=== PATIENT | male | born 1985 | race Caucasian/White ===

== ENCOUNTER 2016-08-14 12:42 | Emergency (ER) | payer BC ==
[2016-08-14 13:02] VITALS: BP 126/70
--- NOTE | 2016-08-14 13:28 | UC ---
UC General HPI - HPI Summary HPI Summary: FEVER, CHILLS X 3 DAYS + HEADACHES , BODY ACHES, CONGESTION , ABDOMINAL PAIN NO N/V/D/C NO URINARY SX. NO COUGH - History of Current Complaint Chief Complaint: UC Stated Complaint: ACHY/STOMACH/FEVER/SORE THROAT Time Seen by Provider: 08/14/16 12:54 Hx Obtained From: Patient Onset/Duration: Gradual Onset, Lasting Days - 3, Still Present Onset Severity: Moderate Current Severity: Moderate Associated Signs & Symptoms: Positive: Abdominal Pain, Diaphoresis, Headache, Weakness. Negative: Agitation, Anticoagulation Therapy, Back Pain, Confusion, Cough, Chest Pain, Decreased Responsiveness, Dizziness, Diarrhea, Dysuria, Decreased Oral Intake, Edema, Fever, Hematemesis, Hemoptysis, Immunocompromised , In-Dwelling Medication Device, Melena, Nausea, Palpitations, Recent Medication Changes, Syncope, SOB, Trauma, Vomiting, Wheezing - Allergy/Home Medications Allergies/Adverse Reactions: Allergies Allergy/AdvReac Type Severity Reaction Status Date / Time Ciprofloxacin Allergy See Comment Verified 08/14/16 12:54 PMH/Surg Hx/FS Hx/Imm Hx Previously Healthy: Yes - Surgical History Surgical History: Yes Surgery Procedure, Year, and Place: L wrist 2002 - Family History Known Family History: Positive: Hypertension - Social History Alcohol Use: None Substance Use Type: None Smoking Status (MU): Former Smoker Type: Cigarettes Length of Time of Smoking/Using Tobacco: On and Off 4 Years Have You Smoked in the Last Year: Yes When Did the Patient Quit Smoking/Using Tobacco: 2012 - Immunization History Most Recent Influenza Vaccination: Current for Review of Systems Constitutional: Fever, Chills, Fatigue Skin: Negative Eyes: Negative ENT: Sore Throat, Nasal Discharge Respiratory: Negative Cardiovascular: Negative Gastrointestinal: Abdominal Pain Genitourinary: Negative Motor: Negative Neurovascular: Negative All Other Systems Reviewed And Are Negative: Yes Physical Exam Triage Information Reviewed: Yes Appearance: Well-Appearing, No Pain Distress, Obese Vital Signs: Initial Vital Signs Temp 98.1 F 08/14/16 12:54 Pulse 74 08/14/16 12:54 Resp 18 08/14/16 12:54 BP 126/70 08/14/16 12:54 Pulse Ox 97 08/14/16 12:54 Vital Signs Reviewed: Yes Eyes: Positive: Conjunctiva Clear ENT: Positive: Normal ENT inspection, Hearing grossly normal, Pharynx normal Neck exam: Normal Neck: Positive: Supple, Nontender, No Lymphadenopathy Respiratory: Positive: Chest non-tender, Lungs clear, Normal breath sounds, No respiratory distress Cardiovascular: Positive: RRR, No Murmur, Pulses Normal, Brisk Capillary Refill Abdominal Exam: Normal Abdomen Description: Positive: Nontender, Soft. Negative: CVA Tenderness (R), CVA Tenderness (L), Distended, Guarding Bowel Sounds: Positive: Present Musculoskeletal: Positive: Strength Intact, ROM Intact, No Edema Neurological: Positive: Alert Skin Exam: Normal Course/Dx - Differential Dx - Multi-Symptom Provider Diagnoses: VIRAL ILLNESS Discharge - Discharge Plan Condition: Stable Disposition: HOME Patient Education Materials: Viral Syndrome (ED) Forms: *Work Release Referrals: Dionisio Knight MD [Primary Care Provider] - If Needed
== END 2016-08-14 13:35 | disposition home or self-care (01) ==
LOC: UCCORT 12:42
DX: B34.9 Viral infection, unspecified (principal); E66.9 Obesity, unspecified; Z87.891 Personal history of nicotine dependence; Z88.1 Allergy status to other antibiotic agents
CPT/HCPCS: 99211; G0463

== ENCOUNTER 2017-06-21 11:04 | Emergency (ER) | payer BC ==
[2017-06-21 11:22] VITALS: BP 117/70
--- NOTE | 2017-06-21 12:55 | UC ---
Respiratory Complaint HPI - HPI Summary HPI Summary: 32 yo male with a one week hx of cough/wheeze/fever/chills/headache/mild myalgias no sob out of his combivent - History of Current Complaint Chief Complaint: UCGeneralIllness Stated Complaint: COUGH Time Seen by Provider: 06/21/17 12:47 Hx Obtained From: Patient Onset/Duration: Sudden Onset, Lasting Days Timing: Constant Severity Initially: Mild Severity Currently: Moderate Pain Intensity: 3 Pain Scale Used: 0-10 Numeric Character: Cough: Productive Aggravating Factors: Exertion, Deep Breaths Alleviating Factors: Nothing Associated Signs And Symptoms: Positive: Fever - oleg, Wheezing, Nasal Congestion , Hoarseness, Sinus Discomfort - Allergies/Home Medications Allergies/Adverse Reactions: Allergies Allergy/AdvReac Type Severity Reaction Status Date / Time Ciprofloxacin Allergy See Comment Verified 06/21/17 11:21 PMH/Surg Hx/FS Hx/Imm Hx Previously Healthy: Yes Respiratory History: Bronchitis, Pneumonia - Surgical History Surgical History: Yes Surgery Procedure, Year, and Place: 2002 - Family History Known Family History: Positive: Hypertension - Social History Alcohol Use: None Substance Use Type: None Smoking Status (MU): Former Smoker Type: Cigarettes Length of Time of Smoking/Using Tobacco: On and Off 4 Years Have You Smoked in the Last Year: Yes When Did the Patient Quit Smoking/Using Tobacco: 2012 - Immunization History Most Recent Influenza Vaccination: Current for Review of Systems Constitutional: Fever - oleg, Fatigue Skin: Negative Eyes: Negative ENT: Sore Throat, Nasal Discharge, Sinus Congestion Respiratory: Cough, Other - wheezing Cardiovascular: Negative Gastrointestinal: Negative Genitourinary: Negative Motor: Negative Neurovascular: Negative Musculoskeletal: Negative Neurological: Negative Psychological: Negative Is Patient Immunocompromised?: No All Other Systems Reviewed And Are Negative: Yes Physical Exam Triage Information Reviewed: Yes Appearance: Well-Appearing, No Pain Distress, Well-Nourished Vital Signs: Initial Vital Signs Temp 98.1 F 06/21/17 11:18 Pulse 76 06/21/17 11:18 Resp 16 06/21/17 11:18 BP 117/70 06/21/17 11:18 Pulse Ox 95 06/21/17 11:18 Vital Signs Reviewed: Yes Eyes: Positive: Conjunctiva Clear ENT: Positive: Hearing grossly normal, Nasal congestion, Nasal drainage, TMs normal, Muffled voice, Uvula midline. Negative: Tonsillar swelling, Tonsillar exudate, Trismus, Dental tenderness Neck: Positive: Supple, Nontender, No Lymphadenopathy Respiratory: Positive: Lungs clear, Normal breath sounds, No respiratory distress, No accessory muscle use, Wheezing - with forced expiration Cardiovascular: Positive: RRR Musculoskeletal: Positive: ROM Intact, No Edema Neurological: Positive: Alert Psychological Exam: Normal Skin Exam: Normal UC Diagnostic Evaluation - Laboratory O2 Sat by Pulse Oximetry: 95 - low normal/not hypoxic Respiratory Course/Dx - Differential Dx/Diagnosis Provider Diagnoses: acute bronchitis with bronchopasm Discharge - Discharge Plan Condition: Stable Disposition: HOME Prescriptions: Albuterol HFA INHALER* [Ventolin HFA Inhaler*] 2 puff INH QID #1 mdi Amoxicillin PO (*) [Amoxicillin 875 MG (*)] 875 mg PO BID #20 tab Prednisone [Deltasone] 40 mg PO DAILY #10 tab Patient Education Materials: Acute Bronchitis (ED) Referrals: Doris Nieves MD [Primary Care Provider] - 4 Days (if not better)
== END 2017-06-21 13:03 | disposition home or self-care (01) ==
LOC: UCCORT 11:04
DX: J20.9 Acute bronchitis, unspecified (principal); Z88.1 Allergy status to other antibiotic agents; Z87.891 Personal history of nicotine dependence
CPT/HCPCS: 99212; G0463

== ENCOUNTER 2018-03-16 23:29 | Emergency (ER) | payer BC ==
--- OUTSIDE RECORDS SUMMARY | 2018-03-16 23:42 | XMS REPORT ---
:1985 External Reference #:[id number] Author Organization [facility] Address [address], [address] [place] [address] Phone [phone] Care Team Providers Name Role Phone Dionisio Knight MD Care Team Information Stove Polisher Unavailable Doris Nieves MD Primary Care Physician Unavailable Payers Type Date Identification Numbers Payment Provider Subscriber Commercial Policy Number: [id number] [facility] Maurilio Palmer PayID: [id number] [address] [place] [address] Problems Date Description Provider Status Onset: 03/04/2018 Epigastric pain Lonnie Williamson MD Active Family History Date Family Member(s) Problem(s) Comments General Non Contributory Father Alcoholism Onset: (age 64 Years) Father CHF Father CAD Grandfather due to Congestive Heart () Failure Social History Type Date Description Comments Marital Status Lives With Home Environment Lives With Diet Patient follows no dietary restrictions 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 ADL's/IADL's Independent with all ADL's Cigarette Use Former Cigarette Smoker Social smoker 5 cigs a day for 6 years ETOH Use Denies alcohol use Smoking Patient is a former smoker Recreational Drug Use Denies Drug Use Daily Caffeine Consumes on average 1 cup of regular coffee per day Allergies, Adverse Reactions, Alerts Date Description Reaction Status Severity Comments 01/27/2013 Ciprofloxacin intolerance, body flush & hot active 01/11/2013 NKDA inactive Medications Medication Date Status Form Strength Qnty SIG Indications Ordering Provider Marilynn 03/04/ Active Tablets 5mg 90tabs 1 tab by Devin Williamson, MD twice a day Pantoprazole 03/04/ Active Tablets DR 40mg 90tabs 1 by Peg Williamson 2018 mouth MD Lonnie every day Amiodarone HCL / Active Tablets 200mg 1 by Unknown 0000 mouth every day Dicyclomine HCL / Active Capsules 10mg 1 cap by Unknown 0000 mouth four times a day as needed No Active Unknown Medications 2017 - 2017 Lactaid Ultra 11/27/ Hx Tablets 9000Unit 90tabs 1 tab R10.9 Teri, 2017 with MD Lonnie every meal Preparation H 09/04/ Hx Cream 1% 26gm 1tube K64.9 Teri Hydrocortisone 2016 apply MD Lonnie small amount to rectum bid Bentyl 09/04/ Hx Capsules 10mg 120cap 1 cap by R10.9 Teri, 2017 s mouth MD Lonnie four times a day s needed Dicyclomine HCL / Hx Tablets 20mg 120tab 1 po qid Unknown 0000 s prn Bupropion HCL ER / Hx Tablets ER 150mg Unknown 0000 12HR Lialda / Hx Tablets DR 1.2gm Unknown 0000 Ibuprofen / Hx Capsules 200mg as Unknown 0000 needed Eliquis / Hx Tablets 5mg 1 tab by Unknown 0000 mouth twice a day Pantoprazole / Hx Tablets DR 40mg 1 by Unknown Sodium 0000 mouth every day Flecainide / Hx Tablets 100mg 60tabs 1 by Ankita Fernandez 0000 - mouth Dominick Fish, 03/04/ twice a MMary, [facility] 2017 Vital Signs Date Vital Result Comment 03/10/2018 BP Systolic Sitting Left Arm 118 mmHg BP Diastolic Sitting Left Arm 78 mmHg Heart Rate 71 /min Respiratory Rate 16 /min Height 69 inches 5'9" Weight 299.00 lb BMI (Body Mass Index) 44.1 kg/m2 BSA (Body Surface Area) 2.45 m2 [place] body weight in kilograms 73 O2 % BldC Oximetry 95 % 03/04/2018 BP Systolic Sitting Left Arm 126 mmHg BP Diastolic Sitting Left Arm 81 mmHg Heart Rate 60 /min Respiratory Rate 16 /min Height 69 inches 5'9" Weight 298.00 lb BMI (Body Mass Index) 44.0 kg/m2 BSA (Body Surface Area) 2.45 m2 [place] body weight in kilograms 73 O2 % BldC Oximetry 96 % 01/13/2018 BP Systolic Sitting Left Arm 122 mmHg BP Diastolic Sitting Left Arm 88 mmHg Heart Rate 73 /min Respiratory Rate 18 /min Height 69 inches 5'9" Weight 302.00 lb BMI (Body Mass Index) 44.6 kg/m2 BSA (Body Surface Area) 2.46 m2 [place] body weight in kilograms 73 O2 % BldC Oximetry 94 % Ora 12/01/2017 Heart Rate 69 /min Respiratory Rate 18 /min Height 69 inches 5'9" Weight 305.00 lb BMI (Body Mass Index) 45.0 kg/m2 BSA (Body Surface Area) 2.47 m2 [place] body weight in kilograms 73 O2 % BldC Oximetry 97 % 11/27/2016 BP Systolic Sitting Left Arm 100 mmHg BP Diastolic Sitting Left Arm 76 mmHg Heart Rate 78 /min Respiratory Rate 18 /min Height 69 inches 5'9" Weight 287.00 lb BMI (Body Mass Index) 42.4 kg/m2 BSA (Body Surface Area) 2.41 m2 [place] body weight in kilograms 73 09/04/2016 BP Systolic Sitting Left Arm 102 mmHg BP Diastolic Sitting Left Arm 68 mmHg Heart Rate 76 /min Respiratory Rate 16 /min Height 69 inches 5'9" Weight 285.00 lb BMI (Body Mass Index) 42.1 kg/m2 BSA (Body Surface Area) 2.40 m2 01/27/2013 BP Systolic Sitting Right Arm 112 mmHg BP Diastolic Sitting Right Arm 67 mmHg Heart Rate 59 /min Respiratory Rate 20 /min Height 69 inches 5'9" Weight 239.00 lb BMI (Body Mass Index) 35.3 kg/m2 BSA (Body Surface Area) 2.23 m2 Results Test Date Test Result H/L Range Note CBC W/Automated Diff 03/10/2018 White Blood Count 5.0 K/uL 3.4-10.5 1 Red Blood Count 5.51 M/uL 4.20-5.80 1 Hemoglobin 15.9 gm/dL 12.8-17.0 1 Hematocrit 46.1 % 38.0-48.0 1 Mean Cell Volume 83.7 fl 80.0-96.0 1 Mean Corpuscular HGB 28.9 pg 27.0-33.0 1 Mean Corpuscular HGB Conc 34.5 g/dL 31.7-36.0 1 Platelet Count 277 K/uL 155-360 1 Red Cell Distri Width SD 40.8 fl 36-51 1 Red Cell Distri Width %CV 13.5 % 11.6-15.8 1 Mean Platelet Volume 9.8 fL 6.6-10.6 1 Neut% 53.8 % 33.0-73.0 1 Lymph % 34.4 % 20.0-42.0 1 Bureau % 7.4 % 0.0-10.0 1 Eo% 3.8 % 0.0-6.6 1 Bas% 0.6 % 0.0-1.1 1 Neut# 2.67 K/uL 1.8-7.0 1 Lymph # 1.71 K/uL 1.0-4.0 1 Bureau # 0.37 K/uL 0.0-0.8 1 Eos # 0.19 K/uL 0.0-0.5 1 Baso # 0.03 K/uL 0.0-0.1 1 Laboratory test finding 03/10/2018 Magnesium <pending> 1 TSH Reflex FT4 And/Or FT3 <pending> 1 Eosinophil/leuk NFr 02/16/2018 Eosinophil/leuk NFr 4.6 0.0-6.6 Bld Auto Bld Auto Lymphocytes/leuk NFr 02/16/2018 Lymphocytes/leuk NFr 37.6 20.0-42.0 Bld Auto Bld Auto Monocytes/leuk NFr Bld 02/16/2018 Monocytes/leuk NFr 9.0 0.0-10.0 Auto Bld Auto Neutrophils # Bld Auto 02/16/2018 Neutrophils # Bld 3.37 1.8-7.0 Auto Neutrophils/leuk NFr 02/16/2018 Neutrophils/leuk NFr 48.2 33.0-73.0 Bld Auto Bld Auto Potassium SerPl-sCnc 02/16/2018 Potassium SerPl-sCnc 3.6 3.5-5.1 RDW RBC Auto 02/16/2018 RDW RBC Auto 40.5 36-51 RDW RBC Auto-Rto 02/16/2018 RDW RBC Auto-Rto 13.3 11.6-15.8 Serum carbon dioxide 02/16/2018 Serum carbon dioxide 27 21-32 measurement measurement Serum or plasma 02/16/2018 Serum or plasma 8.6 8.5-10.1 calcium measurement calcium measurement (mass/volume) (mass/volume) Serum or plasma 02/16/2018 Serum or plasma 1.1 0.6-1.3 creatinine measurement creatinine (mass/volum measurement (mass/volume) Serum or plasma direct 02/16/2018 Serum or plasma 0.2 0.0-0.2 bilirubin measurement direct bilirubin (mass measurement (mass/volume) Serum or plasma 02/16/2018 Serum or plasma 100 74-106 glucose measurement glucose measurement (mass/volume) (mass/volume) Serum or plasma 02/16/2018 Serum or plasma 1.9 High 0.0-0.9 indirect bilirubin indirect bilirubin measurement (ma measurement (mass/volume) Serum or plasma total 02/16/2018 Serum or plasma total 2.1 High 0.2-1.0 bilirubin measurement bilirubin measurement (mass/ (mass/volume) Serum or plasma urea 02/16/2018 Serum or plasma urea 6 Low 7-18 nitrogen measurement nitrogen measurement (mass/vo (mass/volume) Serum or plasma urea 02/16/2018 Serum or plasma urea 5.4 nitrogen/creatinine nitrogen/creatinine mass rati mass ratio Serum sodium 02/16/2018 Serum sodium 142 136-145 measurement measurement Aot Request 02/16/2018 Aot Request Test(s) 2, 3 added Tests to be added: Bilirubin, direc <SEE NOTE> 2, 4 * Miscellaneous 02/16/2018 * Miscellaneous Test(s) added studies (set) studies (set) Anion Gap SerPl-sCnc 02/16/2018 Anion Gap SerPl-sCnc 9 8-16 Automated blood 02/16/2018 Automated blood 0.04 0.0-0.1 basophil count basophil count (count/volume) (count/volume) Automated blood 02/16/2018 Automated blood 0.32 0.0-0.5 eosinophil count eosinophil count Automated blood 02/16/2018 Automated blood 49.3 38.0-48.0 hematocrit (volume hematocrit (volume fraction) fraction) Automated blood 02/16/2018 Automated blood 2.63 1.0-4.0 lymphocyte count lymphocyte count (number/volume) (number/volume) Automated blood 02/16/2018 Automated blood 271 155-360 platelet count platelet count Automated blood 02/16/2018 Automated blood 9.8 6.6-10.6 platelet mean volume platelet mean volume measurement measurement Automated erythrocyte 02/16/2018 Automated erythrocyte 28.9 27.0-33.0 mean corpuscular mean corpuscular hemoglobin hemoglobin (mass per erythrocyte) Automated erythrocyte 02/16/2018 Automated erythrocyte 34.5 31.7-36.0 mean corpuscular mean corpuscular hemoglobin hemoglobin concentration measurement (mass/volume) Automated erythrocyte 02/16/2018 Automated erythrocyte 83.8 80.0-96.0 mean corpuscular mean corpuscular volume volume Basophils/leuk NFr 02/16/2018 Basophils/leuk NFr 0.6 0.0-1.1 Bld Auto Bld Auto Blood erythrocytes 02/16/2018 Blood erythrocytes 5.88 High 4.20-5.80 automated count automated count (number/volume) (number/volume) Blood hemoglobin 02/16/2018 Blood hemoglobin 17.0 12.8-17.0 measurement measurement (mass/volume) (mass/volume) Blood leukocytes 02/16/2018 Blood leukocytes 7.0 3.4-10.5 automated count automated count (number/volume) (number/volume) Blood monocytes 02/16/2018 Blood monocytes 0.63 0.0-0.8 automated count automated count (number/volume) (number/volume) Chloride SerPl-sCnc 02/16/2018 Chloride SerPl-[facility] 106 98-107 Serum or plasma 02/15/2018 Serum or plasma 1.4 0.4-1.9 lactate measurement lactate measurement (moles/volume) (moles/volume) pH Ur Strip.auto 02/13/2018 pH Ur Strip.auto 6.0 Low 6.5-7.5 Urobilinogen Ur 02/13/2018 Urobilinogen Ur 0.2 0.2-1.0 Strip-aCnc Strip-aCnc Urine total bilirubin 02/13/2018 Urine total bilirubin Negative Negative detection by detection by automated test automated test strip Urine hemoglobin 02/13/2018 Urine hemoglobin Negative Negative detection by detection by automated test strip automated test strip Urine glucose 02/13/2018 Urine glucose Negative Negative measurement by measurement by automated test strip automated test strip (mass/volume) Urine appearance 02/13/2018 Urine appearance Clear Clear determination determination Specific gravity of 02/13/2018 Specific gravity of 1.025 1.010-1.030 Urine by Automated Urine by Automated test strip test strip Serum or plasma 02/13/2018 Serum or plasma 7.3 6.4-8.2 protein measurement protein measurement (mass/volume) (mass/volume) Serum or plasma 02/13/2018 Serum or plasma 56 56-289 lipase measurement lipase measurement (enzymatic acti (enzymatic activity/volume) Serum or plasma 02/13/2018 Serum or plasma 23 15-37 aspartate aspartate aminotransferase aminotransferase measure measurement (enzymatic activity/volume) Serum or plasma 02/13/2018 Serum or plasma 74 45-117 alkaline phosphatase alkaline phosphatase measurement ( measurement (enzymatic activity/volume) Serum or plasma 02/13/2018 Serum or plasma 3.7 3.4-5.0 albumin measurement albumin measurement (mass/volume) (mass/volume) Serum or plasma C 02/13/2018 Serum or plasma C 8.0 High <3.0 reactive protein reactive protein measurement (ma measurement (mass/volume) Prot Ur 02/13/2018 Prot Ur Negative Negative Strip.auto-mCnc Strip.auto-mCnc Nitrite Ur Ql 02/13/2018 Nitrite Ur Ql Negative Negative Strip.auto Strip.auto Leukocyte esterase Ur 02/13/2018 Leukocyte esterase Ur Negative Negative Ql Strip.auto Ql Strip.auto Ketones Ur 02/13/2018 Ketones Ur Trace High Negative Strip.auto-mCnc Strip.auto-mCnc Globulin Ser 02/13/2018 Globulin Ser 3.6 1.9-4.3 Calc-mCnc Calc-mCnc Alt SerPl-cCnc 02/13/2018 Alt SerPl-cCnc 41 12-78 Albumin/Glob SerPl 02/13/2018 Albumin/Glob SerPl 1.0 Color Ur 02/13/2018 Color Ur Yellow Yellow Globulin Ser 11/10/2017 Globulin Ser 3.1 1.9-4.3 Calc-mCnc Calc-mCnc Chloride SerPl-sCnc 11/10/2017 Chloride SerPl-sCnc 106 98-107 Potassium SerPl-sCnc 11/10/2017 Potassium SerPl-sCnc 4.1 3.5-5.1 RDW RBC Auto-Rto 11/10/2017 RDW RBC Auto-Rto 13.7 11.6-15.8 Serum carbon dioxide 11/10/2017 Serum carbon dioxide 30 21-32 measurement measurement Serum or plasma 11/10/2017 Serum or plasma 3.3 Low 3.4-5.0 albumin measurement albumin measurement (mass/volume) (mass/volume) Serum or plasma 11/10/2017 Serum or plasma 67 45-117 alkaline phosphatase alkaline phosphatase measurement ( measurement (enzymatic activity/volume) Serum or plasma 11/10/2017 Serum or plasma 20 15-37 aspartate aspartate aminotransferase aminotransferase measure measurement (enzymatic activity/volume) Serum or plasma 11/10/2017 Serum or plasma 8.4 Low 8.5-10.1 calcium measurement calcium measurement (mass/volume) (mass/volume) Serum or plasma 11/10/2017 Serum or plasma 1.1 0.6-1.3 creatinine creatinine measurement measurement (mass/volum (mass/volume) Serum or plasma 11/10/2017 Serum or plasma 106 74-106 glucose measurement glucose measurement (mass/volume) (mass/volume) Serum or plasma 11/10/2017 Serum or plasma 6.4 6.4-8.2 protein measurement protein measurement (mass/volume) (mass/volume) Serum or plasma total 11/10/2017 Serum or plasma total 0.9 0.2-1.0 bilirubin measurement bilirubin measurement (mass/ (mass/volume) Serum or plasma urea 11/10/2017 Serum or plasma urea 16 7-18 nitrogen measurement nitrogen measurement (mass/vo (mass/volume) Serum sodium 11/10/2017 Serum sodium 140 136-145 measurement measurement Unloinc 11/10/2017 Unloinc Sitting Up In Bed Continuous Oximetry 11/10/2017 Oximetry 98 % 93-98 5 Fio2 21 21-100 5 Heart Rate 85 BPM 5 Patient Status RESTING 5 Patient Position SITTING UP IN BE <SEE NOTE> 5, 6 Unloinc 11/10/2017 Unloinc Ambulating Heart rate by oximetry 11/10/2017 Heart rate by oximetry 102 Determination of inhaled 11/10/2017 Determination of inhaled 21 21-100 oxygen concentration (vol oxygen concentration (volume fraction) Arterial blood oxygen 11/10/2017 Arterial blood oxygen 93 93-98 saturation measurement by saturation measurement by pu pulse oximetry Continuous Oximetry 11/10/2017 Oximetry 93 % 93-98 5 Fio2 21 21-100 5 Heart Rate 102 BPM 5 Patient Status AMBULATING 5 CBC 11/10/2017 White Blood Count 6.4 K/uL 3.4-10.5 5 Red Blood Count 5.59 M/uL 4.20-5.80 5 Hemoglobin 16.5 gm/dL 12.8-17.0 5 Hematocrit 47.5 % 38.0-48.0 5 Mean Cell Volume 85.0 fl 80.0-96.0 5 Mean Corpuscular HGB 29.5 pg 27.0-33.0 5 Mean Corpuscular HGB Conc 34.7 g/dL 31.7-36.0 5 Platelet Count 261 K/uL 155-360 5 Red Cell Distri Width %CV 13.7 % 11.6-15.8 5 Mean Platelet Volume 9.9 fL 6.6-10.6 5 Comprehensive Metabolic Panel 11/10/2017 Glucose 106 mg/dL 74-106 5 BUN 16 mg/dL 7-18 5 Creatinine 1.1 mg/dL 0.6-1.3 5 Glom Filtration Rate, Estimate >60 mL/min >60 5 If >60 mL/min >60 5, 7 BUN/Creat 14.5 ratio 5 Sodium 140 mmol/L 136-145 5 Potassium 4.1 mmol/L 3.5-5.1 5 Chloride 106 mmol/L 98-107 5 Carbon Dioxide 30 mmol/L 21-32 5 Anion Gap 4 mEq/L Low 8-16 5 Calcium 8.4 mg/dL Low 8.5-10.1 5 Total Protein 6.4 g/dL 6.4-8.2 5 Albumin 3.3 g/dL Low 3.4-5.0 5 Globulin 3.1 g/dL 1.9-4.3 5 Alb/Glob 1.1 ratio 5 Bilirubin,Total 0.9 mg/dL 0.2-1.0 5 Sgot/Ast 20 U/L 15-37 5 SGPT/Alt 39 U/L 12-78 5 Alkaline Phosphatase 67 U/L 45-117 5 Laboratory test 11/10/2017 Magnesium 2.1 mg/dL 1.8-2.4 5 finding Alt SerPl-cCnc 11/10/2017 Alt SerPl-cCnc 39 12-78 Blood leukocytes 11/10/2017 Blood leukocytes 6.4 3.4-10.5 automated count automated count (number/volume) (number/volume) Blood hemoglobin 11/10/2017 Blood hemoglobin 16.5 12.8-17.0 measurement measurement (mass/volume) (mass/volume) Blood erythrocytes 11/10/2017 Blood erythrocytes 5.59 4.20-5.80 automated count automated count (number/volume) (number/volume) BUN/Creat SerPl 11/10/2017 BUN/Creat SerPl 14.5 Automated 11/10/2017 Automated 85.0 80.0-96.0 erythrocyte mean erythrocyte mean corpuscular volume corpuscular volume Automated 11/10/2017 Automated 34.7 31.7-36.0 erythrocyte mean erythrocyte mean corpuscular corpuscular hemoglobin hemoglobin concentration measurement (mass/volume) Automated 11/10/2017 Automated 29.5 27.0-33.0 erythrocyte mean erythrocyte mean corpuscular corpuscular hemoglobin hemoglobin (mass per erythrocyte) Automated blood 11/10/2017 Automated blood 9.9 6.6-10.6 platelet mean volume platelet mean volume measurement measurement Automated blood 11/10/2017 Automated blood 261 155-360 platelet count platelet count Automated blood 11/10/2017 Automated blood 47.5 38.0-48.0 hematocrit (volume hematocrit (volume fraction) fraction) Anion Gap SerPl-sCnc 11/10/2017 Anion Gap SerPl-sCnc 4 Low 8-16 Albumin/Glob SerPl 11/10/2017 Albumin/Glob SerPl 1.1 Automated blood 11/09/2017 Automated blood 2.32 1.0-4.0 lymphocyte count lymphocyte count (number/volume) (number/volume) Automated blood 11/09/2017 Automated blood 0.24 0.0-0.5 eosinophil count eosinophil count Basophils/leuk NFr 11/09/2017 Basophils/leuk NFr 0.6 0.0-1.1 Bld Auto Bld Auto Blood monocytes 11/09/2017 Blood monocytes 0.43 0.0-0.8 automated count automated count (number/volume) (number/volume) Eosinophil/leuk NFr 11/09/2017 Eosinophil/leuk NFr 3.7 0.0-6.6 Bld Auto Bld Auto Lymphocytes/leuk NFr 11/09/2017 Lymphocytes/leuk NFr 35.7 20.0-42.0 Bld Auto Bld Auto Monocytes/leuk NFr 11/09/2017 Monocytes/leuk NFr 6.6 0.0-10.0 Bld Auto Bld Auto Neutrophils # Bld 11/09/2017 Neutrophils # Bld 3.47 1.8-7.0 Auto Auto Neutrophils/leuk NFr 11/09/2017 Neutrophils/leuk NFr 53.4 33.0-73.0 Bld Auto Bld Auto Platelet poor plasma 11/09/2017 Platelet poor plasma 1.1 0.9-1.1 international international normalized rati normalized ratio (Inr) by coagulation assay (relative time) Prothrombin time 11/09/2017 Prothrombin time 14.0 12.0-14.4 (PT) in platelet (PT) in platelet poor plasma poor plasma RDW RBC Auto 11/09/2017 RDW RBC Auto 40.7 36-51 Serum or plasma 11/09/2017 Serum or plasma 192 39-308 creatine kinase creatine kinase measurement (enzym measurement (enzymatic activity/volume) Serum or plasma free 11/09/2017 Serum or plasma free 1.24 0.76-1.46 thyroxine (FT4) thyroxine (FT4) measurement ( measurement (mass/volume) TSH SerPl-aCnc 11/09/2017 TSH SerPl-aCnc 0.92 0.30-4.20 Color Ur 11/09/2017 Color Ur Yellow Yellow Ketones Ur 11/09/2017 Ketones Ur Negative Negative Strip.auto-mCnc Strip.auto-mCnc Leukocyte esterase 11/09/2017 Leukocyte esterase Negative Negative Ur Ql Strip.auto Ur Ql Strip.auto Nitrite Ur Ql 11/09/2017 Nitrite Ur Ql Negative Negative Strip.auto Strip.auto Prot Ur 11/09/2017 Prot Ur Negative Negative Strip.auto-mCnc Strip.auto-mCnc Screening urine 11/09/2017 Screening urine Negative barbiturate barbiturate detection detection Specific gravity of 11/09/2017 Specific gravity of 1.020 1.010-1.030 Urine by Automated Urine by Automated test strip test strip Urine amphetamines 11/09/2017 Urine amphetamines Negative detection by detection by screening method screening method Urine appearance 11/09/2017 Urine appearance Clear Clear determination determination Urine 11/09/2017 Urine Negative benzodiazepines benzodiazepines measurement by measurement by screening met screening method (mass/volume) Urine 11/09/2017 Urine Negative benzoylecgonine benzoylecgonine detection by detection by screening metho screening method Urine cannabinoids 11/09/2017 Urine cannabinoids Negative detection by detection by screening method screening method Automated blood 11/09/2017 Automated blood 0.04 0.0-0.1 basophil count basophil count (count/volume) (count/volume) Activated partial 11/09/2017 Activated partial 27.7 23.4-35.0 thromboplastin time thromboplastin time (aPTT) in pl (aPTT) in platelet poor plasma by coagulation assay * Miscellaneous 11/09/2017 * Miscellaneous Already done studies (set) studies (set) Aot Request 11/09/2017 Aot Request Already done 8, 9 Tests to be added: TSH WITH REFELX <SEE NOTE> 8, 10 pH Ur Strip.auto 11/09/2017 pH Ur Strip.auto 7.0 6.5-7.5 Urobilinogen Ur 11/09/2017 Urobilinogen Ur 1.0 0.2-1.0 Strip-aCnc Strip-aCnc Urine total bilirubin 11/09/2017 Urine total bilirubin Negative Negative detection by detection by automated test automated test strip Urine opiates 11/09/2017 Urine opiates Negative detection by detection by screening method screening method Urine methadone 11/09/2017 Urine methadone Negative screen screen Urine drug screen 11/09/2017 Urine drug screen * comment comment interpretation interpretation Urine glucose 11/09/2017 Urine glucose Negative Negative measurement by measurement by automated test strip automated test strip (mass/volume) Urine hemoglobin 11/09/2017 Urine hemoglobin Negative Negative detection by detection by automated test strip automated test strip Ova & Parasite 09/10/2016 Cryptosporidium NEGATIVE FOR 11, 12 Antigen Screen Specific Ag CRY <SEE NOTE> Giardia Specific Antigen NEGATIVE FOR SAUNDRA <SEE NOTE> 11, 13 Stool Culture 09/10/2016 Stool Culture NO ENTERIC PATHO <SEE NOTE> , 14 . ................ <SEE NOTE> 11, 15 Note: INCLUDES TESTING <SEE NOTE> 11, 16 . PLESIOMONAS, CAM <SEE NOTE> 11, 17 . ................ <SEE NOTE> 11, 18 . YERSINIA AND VIB <SEE NOTE> 11, 19 . SHOULD BE REQUES <SEE NOTE> 11, 20 Shiga Toxin 1 Antigen SHIGA TOXIN 1 NO <SEE NOTE> 11, 21 Shiga Toxin 2 Antigen SHIGA TOXIN 2 NO <SEE NOTE> 11, 22 Laboratory test 09/10/2016 C. Difficile Toxin NEGATIVE FOR C. 11, 23 finding A/B <SEE NOTE> Laboratory test 09/04/2016 C-Reactive 1.82 mg/L <3.0 24 finding Protein,Cardiac Sedimentation Rate 1 mm/hr 0-15 24, 25 Celiac Disease Comp AB Profile 09/04/2016 Immunoglobulin A 222 mg/dL 90- 386 24 Antigliadin Abs, IgG 3 units 0-19 24, 26 Antigliadin Abs, IgA 3 units 0-19 24, 27 Endomysial IgA Antibody Negative Negative 24 t-Transglutaminase IgA <2 U/mL 0-3 24, 28 t-Transglutaminase IgG <2 U/mL 0-5 24, 29 Inflammatory Bowel Disease 09/04/2016 Atypical pANCA <1:20 titer Neg:<1: 20 24, 30 Saccharomyces cerevisiae, IgG < 20.0 units 0.0-24.9 24, 31 Saccharomyces cerevisiae, IgA < 20.0 units 0.0-24.9 24, 32 1 I48.O 2 CHOLECYSTITIS, AFIB 3 Tests: Bilirubin, direct and indirest Instructions: 4 Bilirubin, direct and indirest 5 ATRIAL FIB WITH RVR 6 SITTING UP IN BED 7 Note: Persistent reduction for 3 months or more in an eGFR <60 mL/min/1.73 m2 defines CKD. Patients with eGFR values >/=60 mL/min/1.73 m2 may also have CKD if evidence of persistent proteinuria is present. The original MDRD equation for estimated GFR is not valid for patients less than 18 years of age. Additional information may be found at www.kdoqi.org. 8 ATRIAL FLUTTER 9 Tests: TSH WITH REFELX FT3/4 Instructions: 10 TSH WITH REFELX FT3/4 11 UNSPEC ABD PAIN r19.7 12 NEGATIVE FOR CRYPTOSPORIDIUM SPECIFIC ANTIGEN 13 NEGATIVE FOR GIARDIA SPECIFIC ANTIGEN. The specimen will be held for 5 days. Additional testing may be performed upon request if the antigen tests are negative, and the patient is still symptomatic or has traveled to an endemic region. Method: Alere Quik Chek Rapid Membrane Enzyme Immunoassay 14 NO ENTERIC PATHOGENS ISOLATED 15 ................................................... 16 INCLUDES TESTING FOR SALMONELLA, SHIGELLA, AEROMONAS, 17 PLESIOMONAS, CAMPYLOBACTER, AND E. COLI [id number]:[id number] 18 ................................................... 19 YERSINIA AND VIBRIO ARE NOT ROUTINELY SCREENED FOR AND 20 SHOULD BE REQUESTED SEPARATELY 21 SHIGA TOXIN 1 NOT DETECTED 22 SHIGA TOXIN 2 NOT DETECTED Method: ImmunoCard STAT/EHEC Rapid Immunochromatographic Assay 23 NEGATIVE FOR C. DIFFICILE TOXIN A/B. Method: Alere Tox A/B Quik Chek Rapid Immunoassay CORRELATE RESULTS WITH CLINICAL CONDITION. 24 R19.7 25 Method: Sediplast Modified Westergren 26 Negative 0 - 19 Weak Positive 20 - 30 Moderate to Strong Positive >30 27 Negative 0 - 19 Weak Positive 20 - 30 Moderate to Strong Positive >30 28 Negative 0 - 3 Weak Positive 4 - 10 Positive >10 Tissue Transglutaminase (tTG) has been identified as the endomysial antigen. Studies have demonstr- ated that endomysial IgA antibodies have over 99% specificity for gluten sensitive enteropathy. 29 Negative 0 - 5 Weak Positive 6 - 9 Positive >9 30 The atypical pANCA pattern has been observed in a significant percentage of patients with ulcerative colitis, primary sclerosing cholangitis and autoimmune hepatitis. ASCA+/PANCA- Suggestive of Crohn's disease ASCA-/PANCA+ Suggestive of Ulcerative colitis 31 Negative <20.0 Equivocal 20.1 - 24.9 Positive >or=25.0 32 Negative <20.0 Equivocal 20.1 - 24.9 Positive >or=25.0 IgA and IgG antibody testing for S. cerevisiae is useful adjunct testing for differentiating Crohn's disease and ulcerative colitis. Close to 80% of Crohn's disease patients are positive for either IgA or IgG. In ulcerative colitis, less than 15% are positive for IgG and less than 2% are positive for IgA. Fewer than 5% are positive for either IgG or IgA antibody, and no healthy controls had antibody for both. Performed at: [facility] [address] [id number] Counter Maker: Manasa Jackson MD, Phone: [phone] Performed at: [facility] [address] [id number] Counter Maker: Phill Farmer MD, Phone: [phone] Procedures Date CPT Code Description Status Comment 03/10/2018 73549 EKG-Tracing And Report Completed 01/13/2018 65259 EKG-Tracing And Report Completed 12/01/2017 10615 EKG-Tracing And Report Completed 11/10/2017 69594 Doppler ECHO Color Flow Mapping Completed 11/10/2017 74953 Doppler Echocardiogram Complete Completed 11/10/2017 13221 Transesophageal Echocardiogram Completed 11/10/2017 56798 Cardioversion External Completed 01/05/2013 Colonoscopy Completed Document: 01/05/13 - Operative Report/Dr Andrade Encounters Type Date Location Provider CPT E/M Dx Office Visit 03/10/2018 10:30a [place] [address] I48.0 Z79.01 Z01.810 G47.33 Office Visit 03/04/2018 4:00p [place] [address] R10.13 Office Visit 01/13/2018 1:00p [place] [address] Z01.810 I48.0 G47.33 I34.0 Office Visit 12/01/2017 1:10p [place] [address] I48.91 G47.33 I34.0 E66.09 Office Visit 11/27/2016 9:15a [place] [address] K59.00 R10.9 Office Visit 09/04/2016 9:15a [place] [address] K59.00 R19.7 R10.9 K64.9 Office Visit 01/27/2013 9:30a Surgical Office Demetrio Otoole 76255 550.92 Felicita Matson Plan of Care Future Appointment(s):06/11/2018 9:40 am - Adriana Deleon PA at Cardiology Fjbzpf0304/05/2018 12:40 pm - Lonnie Williamson MD at Operating Room 1:00 pm - Adriana Deleon PA at Cardiology Iqmdke8503/10/2018 - Valeri Vela MDI48.0 Paroxysmal atrial fibrillationComments:He feels great. His GERARD is now treated and he converted after last hospitalization with Amiodarone. He reports no side effects. He is very much concerned that his bariatric surgery may be delayed. I would recommend continuation of Amiodarone until after bariatric surgery as he will be at risk of recurrences around surgical procedures. 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 Not sure when he converted on Amiodarone. Would continue right up to endoscopy which is scheduled 04/05. He can hold 48-72 hrs prior. If he maintains in sinus during EGD, he does not need to restart Eliquis. His CHADS Vasc score is essentially zero and he will continue Amiodarone throughout bariatric surgery.Z01.810 Encounter for preprocedural cardiovascular examinationComments:He will be at low risk fro MACE for endoscopy as well as bariatric surgery. I would recommend to continue Amiodarone for now to help him get through procedures and surgeries without significant risk ofrecurrent breakthrough AF. He is in sinus now and he can stop OAC at any time needed for surgery. Usual recommendation is to hold 48 hrs prior to invasive procedures. No additional cardiac testing recommended at this time.G47.33 Obstructive sleep apnea (adult) (pediatric)Comments:Compliant with CPAP though does not like using itAllFollow up:3 months. Sooner appt if symptoms arise.
--- OUTSIDE RECORDS SUMMARY | 2018-03-16 23:42 | XMS REPORT ---
:1985 External Reference #:[id number] Author Organization [facility] Address [address], [address] [place] [address] Phone [phone] Care Team Providers Name Role Phone Dionisio Knight MD Care Team Information Insulation Engineman Unavailable Doris Nieves MD Primary Care Physician Unavailable Payers Type Date Identification Numbers Payment Provider Subscriber Commercial Policy Number: [id number] [facility] Maurilio Palmer PayID: [id number] [address] [place] [address] Problems Date Description Provider Status Onset: 03/04/2018 Epigastric pain Lonnie Williamson MD Active Family History Date Family Member(s) Problem(s) Comments General Non Contributory Father Alcoholism Onset: (age 64 Years) Father CHF Father CAD Grandfather due to Congestive Heart () Failure Social History Type Date Description Comments Marital Status Lives With Home Environment Lives With Diet Patient follows no dietary restrictions 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 Independent with [...] mouth Dominick Fish, 03/04/ twice a MMary, [facility] 2017 Vital Signs Date Vital Result Comment 03/10/2018 BP Systolic Sitting Left Arm 118 mmHg BP Diastolic Sitting Left Arm 78 mmHg Heart Rate 71 /min Respiratory Rate 16 /min Height 69 inches 5'9" Weight 299.00 lb BMI (Body Mass Index) 44.1 kg/m2 BSA (Body Surface Area) 2.45 m2 [place] body weight in kilograms 73 O2 % BldC Oximetry 95 % 03/04/2018 BP Systolic Sitting Left Arm 126 mmHg BP Diastolic Sitting Left Arm 81 mmHg Heart Rate 60 /min Respiratory Rate 16 /min Height 69 inches 5'9" Weight 298.00 lb BMI (Body Mass Index) 44.0 kg/m2 BSA (Body Surface Area) 2.45 m2 [place] body weight in kilograms 73 O2 % BldC Oximetry 96 % 01/13/2018 BP Systolic Sitting Left Arm 122 mmHg BP Diastolic Sitting Left Arm 88 mmHg Heart Rate 73 /min Respiratory Rate 18 /min Height 69 inches 5'9" Weight 302.00 lb BMI (Body Mass Index) 44.6 kg/m2 BSA (Body Surface Area) 2.46 m2 [place] body weight in kilograms 73 O2 % BldC Oximetry 94 % Ora 12/01/2017 Heart Rate 69 /min Respiratory Rate 18 /min Height 69 inches 5'9" Weight 305.00 lb BMI (Body Mass Index) 45.0 kg/m2 BSA (Body Surface Area) 2.47 m2 [place] body weight in kilograms 73 O2 % BldC Oximetry 97 % 11/27/2016 BP Systolic Sitting Left Arm 100 mmHg BP Diastolic Sitting Left Arm 76 mmHg Heart Rate 78 /min Respiratory Rate 18 /min Height 69 inches 5'9" Weight 287.00 lb BMI (Body Mass Index) 42.4 kg/m2 BSA (Body Surface Area) 2.41 m2 [place] body weight in kilograms 73 09/04/2016 BP [...] Test Date Test Result H/L Range Note TSH Reflex FT4 And/Or 03/10/2018 Thyroid Stim Hormone 2.06 uIU/mL 0.30- 4.20 1 FT3 Reflex add FT3? Y 1 Reflex add FT4? Y 1 CBC W/Automated Diff 03/10/2018 White Blood Count [...] 1 Lymph % 34.4 % 20.0-42.0 1 [place] % 7.4 % 0.0-10.0 1 Eo% 3.8 % 0.0-6.6 1 Bas% 0.6 % 0.0-1.1 1 Neut# 2.67 K/uL 1.8-7.0 1 Lymph # 1.71 K/uL 1.0-4.0 1 [place] # 0.37 K/uL 0.0-0.8 1 Eos # 0.19 K/uL 0.0-0.5 1 Baso # 0.03 K/uL 0.0-0.1 1 Magnesium 03/10/2018 Magnesium 2.0 mg/dL 1.8-2.4 1 Reflex add FT3? Y 1 Reflex add FT4? Y 1 Comprehensive Metabolic Panel 03/10/2018 Glucose 103 mg/dL 74-106 1 BUN 14 mg/dL 7-18 1 Creatinine 1.1 mg/dL 0.6-1.3 1 Glom Filtration Rate, Estimate >60 mL/min >60 1 If >60 mL/min >60 1, 2 BUN/Creat 12.7 ratio 1 Sodium 142 mmol/L 136-145 1 Potassium 3.9 mmol/L 3.5-5.1 1 Chloride 108 mmol/L High 98-107 1 Carbon Dioxide 28 mmol/L 21-32 1 Anion Gap 6 mEq/L Low 8-16 1 Calcium 8.7 mg/dL 8.5-10.1 1 Total Protein 6.9 g/dL 6.4-8.2 1 Albumin 3.6 g/dL 3.4-5.0 1 Globulin 3.3 g/dL 1.9-4.3 1 Alb/Glob 1.1 ratio 1 Bilirubin,Total 1.6 mg/dL High 0.2-1.0 1 Sgot/Ast 15 U/L 15-37 1 SGPT/Alt 30 U/L 12-78 1 Alkaline Phosphatase 69 U/L 45-117 1 Reflex add FT3? Y 1 Reflex add FT4? Y 1 Lymphocytes/leuk NFr 02/16/2018 Lymphocytes/leuk NFr 37.6 20.0-42.0 Bld Auto Bld Auto Monocytes/leuk NFr Bld 02/16/2018 Monocytes/leuk NFr Bld 9.0 0.0-10.0 Auto Auto Neutrophils # Bld Auto 02/16/2018 Neutrophils # Bld Auto 3.37 1.8-7.0 Neutrophils/leuk NFr 02/16/2018 Neutrophils/leuk NFr 48.2 33.0-73.0 [...] or plasma 1.1 0.6-1.3 creatinine measurement creatinine measurement (mass/volum (mass/volume) Serum or plasma direct 02/16/2018 Serum or plasma direct 0.2 0.0-0.2 bilirubin measurement bilirubin measurement (mass (mass/volume) Serum or plasma 02/16/2018 Serum or [...] measurement Aot Request 02/16/2018 Aot Request Test(s) 3, 4 added Tests to be added: Bilirubin, direc <SEE NOTE> 3, 5 * Miscellaneous 02/16/2018 * Miscellaneous Test(s) added [...] count (number/volume) (number/volume) Chloride SerPl-sCnc 02/16/2018 Chloride SerPl-sCnc 106 98-107 Eosinophil/leuk NFr 02/16/2018 Eosinophil/leuk NFr 4.6 0.0-6.6 Bld Auto Bld Auto Serum or plasma 02/15/2018 Serum or plasma 1.4 0.4-1.9 lactate measurement lactate measurement (moles/volume) (moles/volume) Alt SerPl-cCnc 02/13/2018 Alt SerPl-cCnc 41 12-78 pH Ur Strip.auto 02/13/2018 pH Ur Strip.auto [...] Ur Negative Negative Ql Strip.auto Ql Strip.auto Albumin/Glob SerPl 02/13/2018 Albumin/Glob SerPl 1.0 Color Ur 02/13/2018 Color Ur Yellow Yellow Globulin Ser 02/13/2018 Globulin Ser 3.6 1.9-4.3 Calc-mCnc Calc-mCnc Ketones Ur 02/13/2018 Ketones Ur Trace High Negative Strip.auto-mCnc Strip.auto-mCnc Globulin Ser 11/10/2017 Globulin Ser 3.1 1.9-4.3 [...] 11/10/2017 Serum sodium 140 136-145 measurement measurement CBC 11/10/2017 White Blood Count 6.4 K/uL 3.4-10.5 6 Red Blood Count 5.59 M/uL 4.20-5.80 6 Hemoglobin 16.5 gm/dL 12.8-17.0 6 Hematocrit 47.5 % 38.0-48.0 6 Mean Cell Volume 85.0 fl 80.0-96.0 6 Mean Corpuscular HGB 29.5 pg 27.0-33.0 6 Mean Corpuscular HGB Conc 34.7 g/dL 31.7-36.0 6 Platelet Count 261 K/uL 155-360 6 Red Cell Distri Width %CV 13.7 % 11.6-15.8 6 Mean Platelet Volume 9.9 fL 6.6-10.6 6 Unloinc 11/10/2017 Unloinc Sitting Up In Bed Continuous Oximetry 11/10/2017 Oximetry 98 % 93-98 6 Fio2 21 21-100 6 Heart Rate 85 BPM 6 Patient Status RESTING 6 Patient Position SITTING UP IN BE <SEE NOTE> 6, 7 Unloinc 11/10/2017 Unloinc Ambulating Heart rate by oximetry 11/10/2017 Heart rate by oximetry 102 Determination of inhaled 11/10/2017 Determination of inhaled 21 21-100 oxygen concentration (vol oxygen concentration (volume fraction) Arterial blood oxygen 11/10/2017 Arterial blood oxygen 93 93-98 saturation measurement by saturation measurement by pu pulse oximetry Continuous Oximetry 11/10/2017 Oximetry 93 % 93-98 6 Fio2 21 21-100 6 Heart Rate 102 BPM 6 Patient Status AMBULATING 6 Comprehensive Metabolic Panel 11/10/2017 Glucose 106 mg/dL 74-106 6 BUN 16 mg/dL 7-18 6 Creatinine 1.1 mg/dL 0.6-1.3 6 Glom Filtration Rate, Estimate >60 mL/min >60 6 If >60 mL/min >60 6, 8 BUN/Creat 14.5 ratio 6 Sodium 140 mmol/L 136-145 6 Potassium 4.1 mmol/L 3.5-5.1 6 Chloride 106 mmol/L 98-107 6 Carbon Dioxide 30 mmol/L 21-32 6 Anion Gap 4 mEq/L Low 8-16 6 Calcium 8.4 mg/dL Low 8.5-10.1 6 Total Protein 6.4 g/dL 6.4-8.2 6 Albumin 3.3 g/dL Low 3.4-5.0 6 Globulin 3.1 g/dL 1.9-4.3 6 Alb/Glob 1.1 ratio 6 Bilirubin,Total 0.9 mg/dL 0.2-1.0 6 Sgot/Ast 20 U/L 15-37 6 SGPT/Alt 39 U/L 12-78 6 Alkaline Phosphatase 67 U/L 45-117 6 Laboratory test 11/10/2017 Magnesium 2.1 mg/dL 1.8-2.4 6 finding Alt SerPl-cCnc 11/10/2017 Alt SerPl-cCnc 39 [...] 8-16 Albumin/Glob SerPl 11/10/2017 Albumin/Glob SerPl 1.1 Basophils/leuk NFr 11/09/2017 Basophils/leuk NFr 0.6 0.0-1.1 Bld Auto Bld Auto Automated blood 11/09/2017 Automated blood 2.32 1.0-4.0 lymphocyte count lymphocyte count (number/volume) (number/volume) Blood monocytes 11/09/2017 Blood monocytes 0.43 0.0-0.8 [...] screening method Automated blood 11/09/2017 Automated blood 0.24 0.0-0.5 eosinophil count eosinophil count Automated blood 11/09/2017 Automated blood 0.04 0.0-0.1 basophil count basophil count (count/volume) (count/volume) Activated partial 11/09/2017 Activated partial 27.7 23.4-35.0 thromboplastin time thromboplastin time (aPTT) in pl (aPTT) in platelet poor plasma by coagulation assay * Miscellaneous 11/09/2017 * Miscellaneous Already done studies (set) studies (set) Aot Request 11/09/2017 Aot Request Already done 9, 10 Tests to be added: TSH WITH REFELX <SEE NOTE> 9, 11 pH Ur Strip.auto 11/09/2017 pH Ur Strip.auto [...] Ova & Parasite 09/10/2016 Cryptosporidium NEGATIVE FOR 12, 13 Antigen Screen Specific Ag CRY <SEE NOTE> Giardia Specific Antigen NEGATIVE FOR SAUNDRA <SEE NOTE> 12, 14 Stool Culture 09/10/2016 Stool Culture NO ENTERIC PATHO <SEE NOTE> 12, 15 . ................ <SEE NOTE> 12, 16 Note: INCLUDES TESTING <SEE NOTE> 12, 17 . PLESIOMONAS, CAM <SEE NOTE> 12, 18 . ................ <SEE NOTE> 12, 19 . YERSINIA AND VIB <SEE NOTE> 12, 20 . SHOULD BE REQUES <SEE NOTE> 12, 21 Shiga Toxin 1 Antigen SHIGA TOXIN 1 NO <SEE NOTE> 12, 22 Shiga Toxin 2 Antigen SHIGA TOXIN 2 NO <SEE NOTE> 12, 23 Laboratory test 09/10/2016 C. Difficile Toxin NEGATIVE FOR C. 12, 24 finding A/B <SEE NOTE> Laboratory test 09/04/2016 C-Reactive 1.82 mg/L <3.0 25 finding Protein,Cardiac Sedimentation Rate 1 mm/hr 0-15 25, 26 Inflammatory Bowel Disease 09/04/2016 Atypical pANCA <1:20 titer Neg:<1: 20 25, 27 Saccharomyces cerevisiae, IgG < 20.0 units 0.0-24.9 25, 28 Saccharomyces cerevisiae, IgA < 20.0 units 0.0-24.9 25, 29 Celiac Disease Comp AB Profile 09/04/2016 Immunoglobulin A 222 mg/dL 90- 386 25 Antigliadin Abs, IgG 3 units 0-19 25, 30 Antigliadin Abs, IgA 3 units 0-19 25, 31 Endomysial IgA Antibody Negative Negative 25 t-Transglutaminase IgA <2 U/mL 0-3 25, 32 t-Transglutaminase IgG <2 U/mL 0-5 25, 33 1 I48.O 2 Note: Persistent reduction for 3 months or more in an eGFR <60 mL/min/1.73 m2 defines CKD. Patients with eGFR values >/=60 mL/min/1.73 m2 may also have CKD if evidence of persistent proteinuria is present. The original MDRD equation for estimated GFR is not valid for patients less than 18 years of age. Additional information may be found at www.kdoqi.org. 3 CHOLECYSTITIS, AFIB 4 Tests: Bilirubin, direct and indirest Instructions: 5 Bilirubin, direct and indirest 6 ATRIAL FIB WITH RVR 7 SITTING UP IN BED 8 Note: Persistent reduction for 3 months or more in an eGFR <60 mL/min/1.73 m2 defines CKD. Patients with eGFR values >/=60 mL/min/1.73 m2 may also have CKD if evidence of persistent proteinuria is present. The original MDRD equation for estimated GFR is not valid for patients less than 18 years of age. Additional information may be found at www.kdoqi.org. 9 ATRIAL FLUTTER 10 Tests: TSH WITH REFELX FT3/4 Instructions: 11 TSH WITH REFELX FT3/4 12 UNSPEC ABD PAIN r19.7 13 NEGATIVE FOR CRYPTOSPORIDIUM SPECIFIC ANTIGEN 14 NEGATIVE FOR GIARDIA SPECIFIC ANTIGEN. The specimen will be held for 5 days. Additional testing may be performed upon request if the antigen tests are negative, and the patient is still symptomatic or has traveled to an endemic region. Method: Alere Quik Chek Rapid Membrane Enzyme Immunoassay 15 NO ENTERIC PATHOGENS ISOLATED 16 ................................................... 17 INCLUDES TESTING FOR SALMONELLA, SHIGELLA, AEROMONAS, 18 PLESIOMONAS, CAMPYLOBACTER, AND E. COLI 0157:H7 19 ................................................... 20 YERSINIA AND VIBRIO ARE NOT ROUTINELY SCREENED FOR AND 21 SHOULD BE REQUESTED SEPARATELY 22 SHIGA TOXIN 1 NOT DETECTED 23 SHIGA TOXIN 2 NOT DETECTED Method: ImmunoCard STAT/EHEC Rapid Immunochromatographic Assay 24 NEGATIVE FOR C. DIFFICILE TOXIN A/B. Method: Alere Tox A/B Quik Chek Rapid Immunoassay CORRELATE RESULTS WITH CLINICAL CONDITION. 25 R19.7 26 Method: Sediplast Modified Félix 27 The atypical pANCA pattern has been observed in a significant percentage of patients with ulcerative colitis, primary sclerosing cholangitis and autoimmune hepatitis. ASCA+/PANCA- Suggestive of Crohn's disease ASCA-/PANCA+ Suggestive of Ulcerative colitis 28 Negative <20.0 Equivocal 20.1 - 24.9 Positive >or=25.0 29 Negative <20.0 Equivocal 20.1 - 24.9 Positive [...] controls had antibody for both. Performed at: [facility] [address] [id number] Life Insurance Specialist: Manasa Jackson MD, Phone: [phone] Performed at: [facility] [address] [id number] Life Insurance Specialist: Phill Farmer MD, Phone: [phone] 30 Negative 0 - 19 Weak Positive 20 - 30 Moderate to Strong Positive >30 31 Negative 0 - 19 Weak Positive 20 - 30 Moderate to Strong Positive >30 32 Negative 0 - 3 Weak Positive 4 - 10 Positive >10 Tissue Transglutaminase (tTG) has been identified as the endomysial antigen. Studies have demonstr- ated that endomysial IgA antibodies have over 99% specificity for gluten sensitive enteropathy. 33 Negative 0 - 5 Weak Positive 6 - 9 Positive >9 Procedures Date CPT Code Description Status Comment 03/10/2018 13915 EKG-Tracing And Report Completed 01/13/2018 26769 EKG-Tracing And Report Completed 12/01/2017 55205 EKG-Tracing And Report Completed 11/10/2017 51486 Doppler ECHO Color Flow Mapping Completed 11/10/2017 88813 Doppler Echocardiogram Complete Completed 11/10/2017 81214 Transesophageal Echocardiogram Completed 11/10/2017 11673 Cardioversion External Completed 01/05/2013 Colonoscopy Completed Document: 01/05/13 - Operative Report/Dr Andrade Encounters Type Date Location Provider CPT E/M Dx Office Visit 03/10/2018 10:30a [place] [address] I48.0 Z79.01 Z01.810 G47.33 Office Visit 03/04/2018 4:00p [place] [address] R10.13 Office Visit 01/13/2018 1:00p [place] [address] Z01.810 I48.0 G47.33 I34.0 Office Visit 12/01/2017 1:10p [place] [address] I48.91 G47.33 I34.0 E66.09 Office Visit 11/27/2016 9:15a [place] [address] K59.00 R10.9 Office Visit 09/04/2016 9:15a [place] [address] K59.00 R19.7 R10.9 K64.9 Office Visit 01/27/2013 9:30a Surgical Office Demetrio Otoole 17544 550.92 Sylvia Matson. 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 Not sure [...]
--- NOTE | 2018-03-17 00:49 | ED ---
HPI Cardiac - HPI Summary HPI Summary: Patient complains of symptoms including sweats, palpitations, shortness of breath starting at 8 PM this evening. Denies fever, cough, sore throat, CP, N/V /D, abdominal pain, change in urine, change in BM. Medical history is A. fib. Patient on Eliquis and amiodarone. States history of admissions 3 for uncontrolled A. fib since October at [facility]. - History of Current Complaint Chief Complaint: EDDysrhythmPalp Stated Complaint: CARDIAC ISSUE Time Seen by Provider: 03/16/18 23:52 Hx Obtained From: Patient Onset/Duration: Started Hours Ago Timing: Constant Current Severity: None Pain Intensity: 0 Pain Scale Used: 0-10 Numeric Aggravating Factor(s): Nothing Alleviating Factor(s): Nothing Associated Signs and Symptoms: Positive: Shortness of Breath, Palpitations - Allergy/Home Medications Allergies/Adverse Reactions: Allergies Allergy/AdvReac Type Severity Reaction Status Date / Time ciprofloxacin Allergy See Comment Verified 03/16/18 23:36 PMH/Surg Hx/FS Hx/Imm Hx Endocrine/Hematology History: Reports: Hx Anticoagulant Therapy Cardiovascular History: Denies: Hx Cardiac Arrest History: Denies: Hx Dialysis Neurological History: Denies: Hx CVA - Surgical History Surgery Procedure, Year, and Place: L [facility] 2002 Infectious Disease History: No Infectious Disease History: Denies: Traveled Outside the [place] in Last 30 Days - Family History Known Family History: Positive: Hypertension - Social History Alcohol Use: None Substance Use Type: Reports: None Smoking Status (MU): Former Smoker Type: Cigarettes Length of Time of Smoking/Using Tobacco: On and Off 4 Years Have You Smoked in the Last Year: Yes Review of Systems Constitutional: Negative Eyes: Negative ENT: Negative Cardiovascular: Other Positive: Palpitations. Negative: Chest Pain Positive: Shortness Of Breath Gastrointestinal: Negative Genitourinary: Negative Musculoskeletal: Negative Skin: Negative Neurological: Negative Psychological: Normal All Other Systems Reviewed And Are Negative: Yes Physical Exam Vital Signs On Initial Exam: Initial Vitals Temp Pulse Resp BP Pulse Ox 97.3 F 67 18 133/70 95 03/16/18 23:33 03/16/18 23:33 03/16/18 23:33 03/16/18 23:33 03/16/18 23:33 Diagnostics - Vital Signs Vital Signs Temp Pulse Resp BP Pulse Ox 03/16/18 23:33 97.3 F 67 18 133/70 95 - Laboratory Lab Statement: Any lab studies that have been ordered have been reviewed, and results considered in the medical decision making process. Disposition - Course Course Of Treatment: Patient complains of symptoms including sweats, palpitations, shortness of breath starting at 8 PM this evening. Denies fever, cough, sore throat, CP, N/V/D, abdominal pain, change in urine, change in BM. Medical history is A. fib. Patient on Eliquis and amiodarone. States history of admissions 3 for uncontrolled A. fib since October at [facility]. Per EKG and continuous monitor and physical exam patient was not in A. fib. Pt opted not to have blood work and labs and imaging done when informed he was not in A. fib. States he will follow-up with his senior internal auditor. Patient is already anticoagulated, and on rate control medicine. Patient vital signs are within normal limits, nontoxic appearing, calm alert, competent to make decision. Taking Eliquis and amiodarone. - Diagnoses Provider Diagnoses: Arrhythmia Discharge - Sign-Out/Discharge Documenting (check all that apply): Patient Departure - Discharge Plan Condition: Stable Disposition: HOME Patient Education Materials: Aprotinin/Calcium Chloride/Fibrinogen/Thrombin ( On the skin), A-fib (Atrial Fibrillation) (ED) Referrals: Doris Nieves MD [Primary Care Provider] - Additional Instructions: Follow-up with your senior internal auditor. Return to the ED for any new or worsening symptoms - Billing Disposition and Condition Condition: STABLE Disposition: Home
[2018-03-17 01:25] VITALS: BP 131/84
== END 2018-03-17 01:24 | disposition home or self-care (01) ==
LOC: ED 23:29
DX: I49.9 Cardiac arrhythmia, unspecified (principal); R06.02 Shortness of breath; R00.2 Palpitations
CPT/HCPCS: 99282

== ENCOUNTER 2018-08-01 15:35 | Emergency (ER) | payer BC ==
--- OUTSIDE RECORDS SUMMARY | 2018-08-01 16:22 | XMS REPORT | Continuity of Care Document ---
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 Doris Nieves MD Primary Care Physician Unavailable Payers Type Date Identification Numbers Payment Provider Subscriber Policy Number: [id number] [facility] Maurilio Palmer PayID: [id number] [address] [place] [address] Advance Directives Description No Information Available Problems Date Description Provider Status Onset: 03/04/2018 Epigastric pain Lonnie Williamson MD Active Onset: 04/27/2018 Obesity Lonnie Williamson MD Active Onset: 04/27/2018 Helicobacter pylori Lonnie Williamson MD Active Family History Date Family Member(s) Problem(s) Comments General Non Contributory Father Alcoholism Onset: (age 64 Years) Father CHF Father CAD Grandfather due to Congestive Heart () Failure Social History Type Date Description Comments Sex Unknown Marital Status Lives With Home Environment Lives With Diet Patient follows no dietary restrictions 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 ADL's/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's Independent with all ADL's Tobacco Use Start: Unknown End: Former Cigarette Smoker Social smoker 5 cigs Unknown a day for 6 years Smoking Status Reviewed: 03/10/18 Former Cigarette Smoker Social smoker 5 cigs a day for 6 years ETOH Use Denies alcohol use Tobacco Use Start: Unknown End: Patient is a former smoker Recreational Drug Use Denies Drug Use Allergies, Adverse Reactions, Alerts Date Description Reaction Status Severity Comments 01/27/2013 Ciprofloxacin intolerance, body flush & hot Active 01/11/2013 NKDA Inactive Medications Medication Date Status Form Strength Qnty SIG Indications Ordering Provider Pantoprazole 03/04/ Active Tablets DR 40mg 90tabs Take One Teri Sodium 2017 Tablet By Lonnie Mouth MD Every Day Amiodarone HCL / Active Tablets 200mg 30tabs 1 by mouth Rebecca 0000 every day , Dominick Fish M.D., [facility] Dicyclomine HCL / Active Capsules 10mg 1 cap by Unknown 0000 mouth four times a day as needed Amoxicillin 04/27/ Hx Capsules 500mg 56caps 2 capsules B96.81 Teri 2018 by Lonnie guerra, twice a MD day for 14 days Clarithromycin 04/27/ Hx Tablets 500mg 28tabs 1 tab by B96.81 Teri 2018 Lonnie guerra, twice a MD day for 14 days No Active Unknown Medications 2017 - 2017 Eliquis 03/04/ Hx Tablets 5mg 180tab 1 tab by I48.0 Rebecca 2018 - s Dominick guerra 07/23/ twice a Felicita Fish, 2018 [facility] Lactaid Ultra 11/27/ Hx Tablets 9000Unit 90tabs 1 tab with R10.9 Teri 2016 every meal Lonnie MD Preparation H 09/04/ Hx Cream 1% 26gm 1tube K64.9 Teri Hydrocortisone 2016 apply , kristen Fleming MD amount to rectum bid Bentyl 09/04/ Hx Capsules 10mg 120cap 1 cap by R10.9 Teri 2016 s mouth four Lonnie, times a MD day s needed Dicyclomine HCL / Hx Tablets 20mg 120tab 1 po qid Unknown 0000 s prn Bupropion HCL ER // Hx Tablets ER 150mg Unknown 0000 12HR Lialda / Hx Tablets DR 1.2gm Unknown 0000 Ibuprofen / Hx Capsules 200mg as needed Unknown 0000 Eliquis / Hx Tablets 5mg 1 tab by Unknown 0000 mouth twice a day Pantoprazole / Hx Tablets DR 40mg 1 by mouth Unknown Sodium 0000 every day Flecainide / Hx Tablets 100mg 60tabs 1 by mouth Rebecca Luciano 0000 - twice a , Domniick Felicita Fish, 2018 [facility] Immunizations Description No Information Available Vital Signs Date Vital Result Comment 07/23/2018 2:50pm BP Systolic Sitting Left Arm 120 mmHg BP Diastolic Sitting Left Arm 80 mmHg Heart Rate 60 /min Respiratory Rate 18 /min Height 69 inches 5'9" Weight 307.00 lb BMI (Body Mass Index) 45.3 kg/m2 BSA (Body Surface Area) 2.48 m2 [place] body weight in kilograms 73 kg O2 Saturation Level with Exercise 96 % 04/27/2018 4:20pm BP Systolic Sitting Right Arm 122 mmHg BP Diastolic Sitting Right Arm 78 mmHg Heart Rate 70 /min Respiratory Rate 16 /min Height 69 inches 5'9" Weight 305.00 lb BMI (Body Mass Index) 45.0 kg/m2 BSA (Body Surface Area) 2.47 m2 [place] body weight in kilograms 73 kg O2 % BldC Oximetry 97 % 03/10/2018 10:31am BP Systolic Sitting Left Arm 118 mmHg BP Diastolic Sitting Left Arm 78 mmHg Heart Rate 71 /min Respiratory Rate 16 /min Height 69 inches 5'9" Weight 299.00 lb BMI (Body Mass Index) 44.1 kg/m2 BSA (Body Surface Area) 2.45 m2 [place] body weight in kilograms 73 kg O2 % BldC Oximetry 95 % 03/04/2018 4:23pm BP Systolic Sitting Left Arm 126 mmHg BP Diastolic Sitting Left Arm 81 mmHg Heart Rate 60 /min Respiratory Rate 16 /min Height 69 inches 5'9" Weight 298.00 lb BMI (Body Mass Index) 44.0 kg/m2 BSA (Body Surface Area) 2.45 m2 [place] body weight in kilograms 73 kg O2 % BldC Oximetry 96 % 01/13/2018 1:10pm BP Systolic Sitting Left Arm 122 mmHg BP Diastolic Sitting Left Arm 88 mmHg Heart Rate 73 /min Respiratory Rate 18 /min Height 69 inches 5'9" Weight 302.00 lb BMI (Body Mass Index) 44.6 kg/m2 BSA (Body Surface Area) 2.46 m2 [place] body weight in kilograms 73 kg O2 % BldC Oximetry 94 % Ora 12/01/2017 1:06pm Heart Rate 69 /min Respiratory Rate 18 /min Height 69 inches 5'9" Weight 305.00 lb BMI (Body Mass Index) 45.0 kg/m2 BSA (Body Surface Area) 2.47 m2 [place] body weight in kilograms 73 kg O2 % BldC Oximetry 97 % 11/27/2016 9:17am BP Systolic Sitting Left Arm 100 mmHg BP Diastolic Sitting Left Arm 76 mmHg Heart Rate 78 /min Respiratory Rate 18 /min Height 69 inches 5'9" Weight 287.00 lb BMI (Body Mass Index) 42.4 kg/m2 BSA (Body Surface Area) 2.41 m2 [place] body weight in kilograms 73 kg 09/04/2016 9:24am BP Systolic Sitting Left Arm 102 mmHg BP Diastolic Sitting Left Arm 68 mmHg Heart Rate 76 /min Respiratory Rate 16 /min Height 69 inches 5'9" Weight 285.00 lb BMI (Body Mass Index) 42.1 kg/m2 BSA (Body Surface Area) 2.40 m2 01/27/2013 9:32am BP Systolic Sitting Right Arm 112 mmHg BP Diastolic Sitting Right Arm 67 mmHg Heart Rate 59 /min Respiratory Rate 20 /min Height 69 inches 5'9" Weight 239.00 lb BMI (Body Mass Index) 35.3 kg/m2 BSA (Body Surface Area) 2.23 m2 Results Test Date Facility Test Result H/L Range Note Laboratory test 06/23/2018 [facility] H. Pylori Negative Negative 1, [address] Stool Antigen [place], [place] [id number] [phone] TSH Reflex FT4 03/10/2018 [facility] Thyroid Stim 2.06 uIU/mL N 0.30-4.20 3 And/Or FT3 [address] Hormone [place], [place] [id number] [phone] Reflex add FT3? Y Reflex add FT4? Y CBC W/Automated Diff 03/10/2018 [facility] White Blood 5.0 K/uL N 3.4-10.[address] Count [place], [place] [id number] [phone] Red Blood Count 5.51 M/uL N 4.20-5.80 Hemoglobin 15.9 gm/dL N 12.8-17.0 Hematocrit 46.1 % N 38.0-48.0 Mean Cell Volume 83.7 fl N 80.0-96.0 Mean Corpuscular HGB 28.9 pg N 27.0-33.0 Mean Corpuscular HGB Conc 34.5 g/dL N 31.7-36.0 Platelet Count 277 K/uL N 155-360 Red Cell Distri Width SD 40.8 fl N 36-51 Red Cell Distri Width %CV 13.5 % N 11.6-15.8 Mean Platelet Volume 9.8 fL N 6.6-10.6 Neut% 53.8 % N 33.0-73.0 Lymph % 34.4 % N 20.0-42.0 [place] % 7.4 % N 0.0-10.0 Eo% 3.8 % N 0.0-6.6 Bas% 0.6 % N 0.0-1.1 Neut# 2.67 K/uL N 1.8-7.0 Lymph # 1.71 K/uL N 1.0-4.0 [place] # 0.37 K/uL N 0.0-0.8 Eos # 0.19 K/uL N 0.0-0.5 Baso # 0.03 K/uL N 0.0-0.1 Comprehensive Metabolic 03/10/2018 [facility] Glucose 103 mg/dL N 74-106 Panel [address] [place] [address] [phone] BUN 14 mg/dL N 7-18 Creatinine 1.1 mg/dL N 0.6-1.3 Glom Filtration Rate, Estimate >60 mL/min >60 If >60 mL/min >60 4 BUN/Creat 12.7 ratio Sodium 142 mmol/L N 136-145 Potassium 3.9 mmol/L N 3.5-5.1 Chloride 108 mmol/L High 98-107 Carbon Dioxide 28 mmol/L N 21-32 Anion Gap 6 mEq/L Low 8-16 Calcium 8.7 mg/dL N 8.5-10.1 Total Protein 6.9 g/dL N 6.4-8.2 Albumin 3.6 g/dL N 3.4-5.0 Globulin 3.3 g/dL N 1.9-4.3 Alb/Glob 1.1 ratio Bilirubin,Total 1.6 mg/dL High 0.2-1.0 Sgot/Ast 15 U/L N 15-37 SGPT/Alt 30 U/L N 12-78 Alkaline Phosphatase 69 U/L N 45-117 Reflex add FT3? Y Reflex add FT4? Y Magnesium 03/10/2018 [facility] Magnesium 2.0 mg/dL N 1.8-2.4 [address] [place] [address] [phone] Reflex add FT3? Y Reflex add FT4? Y Monocytes/leuk NFr 02/16/2018 N2N/CCD Import Monocytes/leuk NFr 9.0 0.0- 10.0 Bld Auto Bld Auto Neutrophils # Bld 02/16/2018 N2N/CCD Import Neutrophils # Bld 3.37 1.8- 7.0 Auto Auto Neutrophils/leuk 02/16/2018 N2N/CCD Import Neutrophils/leuk 48.2 33.0- 73.0 NFr Bld Auto NFr Bld Auto Potassium 02/16/2018 N2N/CCD Import Potassium 3.6 3.5-5.1 SerPl-sCnc SerPl-sCnc RDW RBC Auto 02/16/2018 N2N/CCD Import RDW RBC Auto 40.5 36-51 RDW RBC Auto-Rto 02/16/2018 N2N/CCD Import RDW RBC Auto-Rto 13.3 11.6- 15.8 Serum carbon 02/16/2018 N2N/CCD Import Serum carbon 27 21-32 dioxide dioxide measurement measurement Serum or plasma 02/16/2018 N2N/CCD Import Serum or plasma 8.6 8.5-10.1 calcium calcium measurement measurement (mass/volume) (mass/volume) Serum or plasma 02/16/2018 N2N/CCD Import Serum or plasma 1.1 0.6-1.3 creatinine creatinine measurement measurement (mass/volum (mass/volume) Serum or plasma 02/16/2018 N2N/CCD Import Serum or plasma 0.2 0.0-0.2 direct bilirubin direct bilirubin measurement (mass measurement (mass/volume) Serum or plasma 02/16/2018 N2N/CCD Import Serum or plasma 100 74-106 glucose glucose measurement measurement (mass/volume) (mass/volume) Serum or plasma 02/16/2018 N2N/CCD Import Serum or plasma 1.9 High 0.0- 0.9 indirect bilirubin indirect bilirubin measurement (ma measurement (mass/volume) Serum or plasma 02/16/2018 N2N/CCD Import Serum or plasma 2.1 High 0.2- 1.0 total bilirubin total bilirubin measurement (mass/ measurement (mass/volume) Serum or plasma 02/16/2018 N2N/CCD Import Serum or plasma 6 Low 7-18 urea nitrogen urea nitrogen measurement measurement (mass/vo (mass/volume) Serum or plasma 02/16/2018 N2N/CCD Import Serum or plasma 5.4 urea urea nitrogen/creatinin nitrogen/creatinin e mass rati e mass ratio Serum sodium 02/16/2018 N2N/CCD Import Serum sodium 142 136-145 measurement measurement Aot Request 02/16/2018 [facility] Aot Request Test(s) 5, [address] [place] [address] [phone] Tests to be added: Bilirubin, direc <SEE NOTE> 7 * Miscellaneous 02/16/2018 N2N/CCD Import * Miscellaneous Test(s) studies (set) studies (set) added Anion Gap 02/16/2018 N2N/CCD Import Anion Gap 9 8-16 SerPl-sCnc SerPl-sCnc Automated blood 02/16/2018 N2N/CCD Import Automated blood 0.04 0.0-0.1 basophil count basophil count (count/volume) (count/volume) Automated blood 02/16/2018 N2N/CCD Import Automated blood 0.32 0.0-0.5 eosinophil count eosinophil count Automated blood 02/16/2018 N2N/CCD Import Automated blood 49.3 #H 38.0- 48.0 hematocrit (volume hematocrit (volume fraction) fraction) Automated blood 02/16/2018 N2N/CCD Import Automated blood 2.63 1.0-4.0 lymphocyte count lymphocyte count (number/volume) (number/volume) Automated blood 02/16/2018 N2N/CCD Import Automated blood 271 155-360 platelet count platelet count Automated blood 02/16/2018 N2N/CCD Import Automated blood 9.8 6.6-10.6 platelet mean platelet mean volume measurement volume measurement Automated 02/16/2018 N2N/CCD Import Automated 28.9 27.0-33.0 erythrocyte mean erythrocyte mean corpuscular corpuscular hemoglobin hemoglobin (mass per erythrocyte) Lymphocytes/leuk 02/16/2018 N2N/CCD Import Lymphocytes/leuk 37.6 20.0- 42.0 NFr Bld Auto NFr Bld Auto Eosinophil/leuk NFr 02/16/2018 N2N/CCD Import Eosinophil/leuk 4.6 0.0- 6.6 Bld Auto NFr Bld Auto Chloride SerPl-sCnc 02/16/2018 N2N/CCD Import Chloride 106 98-107 SerPl-sCnc Blood monocytes 02/16/2018 N2N/CCD Import Blood monocytes 0.63 0.0-0.8 automated count automated count (number/volume) (number/volume) Blood leukocytes 02/16/2018 N2N/CCD Import Blood leukocytes 7.0 3.4- 10.5 automated count automated count (number/volume) (number/volume) Automated 02/16/2018 N2N/CCD Import Automated 34.5 31.7-36.0 erythrocyte mean erythrocyte mean corpuscular corpuscular hemoglobin hemoglobin concentration measurement (mass/volume) Automated 02/16/2018 N2N/CCD Import Automated 83.8 80.0-96.0 erythrocyte mean erythrocyte mean corpuscular volume corpuscular volume Blood hemoglobin 02/16/2018 N2N/CCD Import Blood hemoglobin 17.0 12.8- 17.0 measurement measurement (mass/volume) (mass/volume) Blood erythrocytes 02/16/2018 N2N/CCD Import Blood erythrocytes 5.88 High 4.20-5.80 automated count automated count (number/volume) (number/volume) Basophils/leuk NFr 02/16/2018 N2N/CCD Import Basophils/leuk NFr 0.6 0.0- 1.1 Bld Auto Bld Auto Serum or plasma 02/15/2018 N2N/CCD Import Serum or plasma 1.4 0.4-1.9 lactate measurement lactate (moles/volume) measurement (moles/volume) pH Ur Strip.auto 02/13/2018 N2N/CCD Import pH Ur Strip.auto 6.0 Low 6.5- 7.5 Urobilinogen Ur 02/13/2018 N2N/CCD Import Urobilinogen Ur 0.2 0.2-1.0 Strip-aCnc Strip-aCnc Urine total 02/13/2018 N2N/CCD Import Urine total Negative Negative bilirubin detection bilirubin by automated test detection by automated test strip Urine hemoglobin 02/13/2018 N2N/CCD Import Urine hemoglobin Negative Negative detection by detection by automated test automated test strip strip Urine glucose 02/13/2018 N2N/CCD Import Urine glucose Negative Negative measurement by measurement by automated test automated test strip strip (mass/volume) Urine appearance 02/13/2018 N2N/CCD Import Urine appearance Clear Clear determination determination Specific gravity of 02/13/2018 N2N/CCD Import Specific gravity 1.025 1.010-1.03 Urine by Automated of Urine by 0 test strip Automated test strip Serum or plasma 02/13/2018 N2N/CCD Import Serum or plasma 7.3 6.4-8.2 protein measurement protein (mass/volume) measurement (mass/volume) Alt SerPl-cCnc 02/13/2018 N2N/CCD Import Alt SerPl-cCnc 41 12-78 Albumin/Glob SerPl 02/13/2018 N2N/CCD Import Albumin/Glob SerPl 1.0 Color Ur 02/13/2018 N2N/CCD Import Color Ur Yellow Yellow Globulin Ser 02/13/2018 N2N/CCD Import Globulin Ser 3.6 1.9-4.3 Calc-mCnc Calc-mCnc Ketones Ur 02/13/2018 N2N/CCD Import Ketones Ur Trace High Negative Strip.auto-mCnc Strip.auto-mCnc Leukocyte esterase 02/13/2018 N2N/CCD Import Leukocyte esterase Negative Negative Ur Ql Strip.auto Ur Ql Strip.auto Serum or plasma 02/13/2018 N2N/CCD Import Serum or plasma 56 56-289 lipase measurement lipase measurement (enzymatic acti (enzymatic activity/volume) Serum or plasma 02/13/2018 N2N/CCD Import Serum or plasma 23 15-37 aspartate aspartate aminotransferase aminotransferase measure measurement (enzymatic activity/volume) Serum or plasma 02/13/2018 N2N/CCD Import Serum or plasma 74 45-117 alkaline alkaline phosphatase phosphatase measurement ( measurement (enzymatic activity/volume) Serum or plasma 02/13/2018 N2N/CCD Import Serum or plasma 3.7 3.4-5.0 albumin measurement albumin (mass/volume) measurement (mass/volume) Serum or plasma C 02/13/2018 N2N/CCD Import Serum or plasma C 8.0 High < 3.0 reactive protein reactive protein measurement (ma measurement (mass/volume) Nitrite Ur Ql 02/13/2018 N2N/CCD Import Nitrite Ur Ql Negative Negative Strip.auto Strip.auto Prot Ur 02/13/2018 N2N/CCD Import Prot Ur Negative Negative Strip.auto-mCnc Strip.auto-mCnc Determination of 11/10/2017 N2N/CCD Import Determination of 21 21-100 inhaled oxygen inhaled oxygen concentration (vol concentration (volume fraction) Serum or plasma 11/10/2017 N2N/CCD Import Serum or plasma 20 15-37 aspartate aspartate aminotransferase aminotransferase measure measurement (enzymatic activity/volume) Serum or plasma 11/10/2017 N2N/CCD Import Serum or plasma 3.3 Low 3.4- 5.0 albumin measurement albumin (mass/volume) measurement (mass/volume) RDW RBC Auto-Rto 11/10/2017 N2N/CCD Import RDW RBC Auto-Rto 13.7 11.6- 15.8 Serum or plasma 11/10/2017 N2N/CCD Import Serum or plasma 16 7-18 urea nitrogen urea nitrogen measurement measurement (mass/vo (mass/volume) Potassium 11/10/2017 N2N/CCD Import Potassium 4.1 3.5-5.1 SerPl-sCnc SerPl-sCnc Serum or plasma 11/10/2017 N2N/CCD Import Serum or plasma 8.4 Low 8.5- 10.1 calcium measurement calcium (mass/volume) measurement (mass/volume) Arterial blood 11/10/2017 N2N/CCD Import Arterial blood 93 93-98 oxygen saturation oxygen saturation measurement by pu measurement by pulse oximetry Serum or plasma 11/10/2017 N2N/CCD Import Serum or plasma 67 45-117 alkaline alkaline phosphatase phosphatase measurement ( measurement (enzymatic activity/volume) Serum or plasma 11/10/2017 N2N/CCD Import Serum or plasma 0.9 0.2-1.0 total bilirubin total bilirubin measurement (mass/ measurement (mass/volume) Serum or plasma 11/10/2017 N2N/CCD Import Serum or plasma 6.4 6.4-8.2 protein measurement protein (mass/volume) measurement (mass/volume) Serum carbon 11/10/2017 N2N/CCD Import Serum carbon 30 21-32 dioxide measurement dioxide measurement Serum sodium 11/10/2017 N2N/CCD Import Serum sodium 140 136-145 measurement measurement Serum or plasma 11/10/2017 N2N/CCD Import Serum or plasma 106 74-106 glucose measurement glucose (mass/volume) measurement (mass/volume) Continuous Oximetry 11/10/2017 [facility] Oximetry 93 % N 93-98 8 [address] [place] [address] [phone] Fio2 21 N 21-100 Heart Rate 102 BPM Patient Status AMBULATING Serum or plasma 11/10/2017 N2N/CCD Import Serum or plasma 1.1 0.6-1.3 creatinine creatinine measurement measurement (mass/volum (mass/volume) Globulin Ser 11/10/2017 N2N/CCD Import Globulin Ser 3.1 1.9-4.3 Calc-mCnc Calc-mCnc Automated blood 11/10/2017 N2N/CCD Import Automated blood 261 155-360 platelet count platelet count Unloinc 11/10/2017 N2N/CCD Import Unloinc Ambulating CBC 11/10/2017 [facility] White Blood Count 6.4 K/uL N 3.4-10.5 [address] [place], [place] [id number] [phone] Red Blood Count 5.59 M/uL N 4.20-5.80 Hemoglobin 16.5 gm/dL N 12.8-17.0 Hematocrit 47.5 % N 38.0-48.0 Mean Cell Volume 85.0 fl N 80.0-96.0 Mean Corpuscular HGB 29.5 pg N 27.0-33.0 Mean Corpuscular HGB Conc 34.7 g/dL N 31.7-36.0 Platelet Count 261 K/uL N 155-360 Red Cell Distri Width %CV 13.7 % N 11.6-15.8 Mean Platelet Volume 9.9 fL N 6.6-10.6 BUN/Creat SerPl 11/10/2017 N2N/CCD Import BUN/Creat SerPl 14.5 Automated erythrocyte 11/10/2017 N2N/CCD Import Automated 85.0 80.0-96 mean corpuscular erythrocyte mean .0 volume corpuscular volume Automated blood 11/10/2017 N2N/CCD Import Automated blood 9.9 6.6-10. platelet mean volume platelet mean 6 measurement volume measurement Comprehensive 11/10/2017 [facility] Glucose 106 mg/dL N 74-106 Metabolic Panel [address] [place] [address] [phone] BUN 16 mg/dL N 7-18 Creatinine 1.1 mg/dL N 0.6-1.3 Glom Filtration Rate, Estimate >60 mL/min >60 If >60 mL/min >60 9 BUN/Creat 14.5 ratio Sodium 140 mmol/L N 136-145 Potassium 4.1 mmol/L N 3.5-5.1 Chloride 106 mmol/L N 98-107 Carbon Dioxide 30 mmol/L N 21-32 Anion Gap 4 mEq/L Low 8-16 Calcium 8.4 mg/dL Low 8.5-10.1 Total Protein 6.4 g/dL N 6.4-8.2 Albumin 3.3 g/dL Low 3.4-5.0 Globulin 3.1 g/dL N 1.9-4.3 Alb/Glob 1.1 ratio Bilirubin,Total 0.9 mg/dL N 0.2-1.0 Sgot/Ast 20 U/L N 15-37 SGPT/Alt 39 U/L N 12-78 Alkaline Phosphatase 67 U/L N 45-117 Automated blood 11/10/2017 N2N/CCD Import Automated blood 47.5 38.0- 48.0 hematocrit hematocrit (volume (volume fraction) fraction) Automated 11/10/2017 N2N/CCD Import Automated 34.7 31.7-36.0 erythrocyte mean erythrocyte mean corpuscular corpuscular hemoglobin hemoglobin concentration measurement (mass/volume) Automated 11/10/2017 N2N/CCD Import Automated 29.5 27.0-33.0 erythrocyte mean erythrocyte mean corpuscular corpuscular hemoglobin hemoglobin (mass per erythrocyte) Blood leukocytes 11/10/2017 N2N/CCD Import Blood leukocytes 6.4 3.4- 10.5 automated count automated count (number/volume) (number/volume) Blood hemoglobin 11/10/2017 N2N/CCD Import Blood hemoglobin 16.5 12.8- 17.0 measurement measurement (mass/volume) (mass/volume) Albumin/Glob 11/10/2017 N2N/CCD Import Albumin/Glob SerPl 1.1 SerPl Unloinc 11/10/2017 N2N/CCD Import Unloinc Sitting Up In Bed Heart rate by 11/10/2017 N2N/CCD Import Heart rate by 102 oximetry oximetry Continuous 11/10/2017 [facility] Oximetry 98 % N 93-98 Oximetry [address] [place] [address] [phone] Fio2 21 N 21-100 Heart Rate 85 BPM Patient Status RESTING Patient Position SITTING UP IN BE <SEE NOTE> 10 Blood erythrocytes 11/10/2017 N2N/CCD Import Blood erythrocytes 5.59 4.20-5.80 automated count automated count (number/volume) (number/volume) Anion Gap 11/10/2017 N2N/CCD Import Anion Gap 4 Low 8-16 SerPl-sCnc SerPl-sCnc Chloride 11/10/2017 N2N/CCD Import Chloride 106 98-107 SerPl-sCnc SerPl-sCnc Alt SerPl-cCnc 11/10/2017 N2N/CCD Import Alt SerPl-cCnc 39 12-78 Laboratory test 11/10/2017 [facility] Magnesium 2.1 mg/dL N 1.8-2.[address] [place] [address] [phone] pH Ur Strip.auto 11/09/2017 N2N/CCD Import pH Ur Strip.auto 7.0 6.5-7.5 Nitrite Ur Ql 11/09/2017 N2N/CCD Import Nitrite Ur Ql Negative Negative Strip.auto Strip.auto * Miscellaneous 11/09/2017 N2N/CCD Import * Miscellaneous Already studies (set) studies (set) done Automated blood 11/09/2017 N2N/CCD Import Automated blood 0.04 0.0-0.1 basophil count basophil count (count/volume) (count/volume) Urobilinogen Ur 11/09/2017 N2N/CCD Import Urobilinogen Ur 1.0 0.2-1.0 Strip-aCnc Strip-aCnc Leukocyte esterase 11/09/2017 N2N/CCD Import Leukocyte esterase Negative Negative Ur Ql Strip.auto Ur Ql Strip.auto Aot Request 11/09/2017 [facility] Aot Request Already 11, [address] done [address] [place] [address] [phone] Tests to be added: TSH WITH REFELX <SEE NOTE> 13 Screening urine 11/09/2017 N2N/CCD Import Screening urine Negative barbiturate barbiturate detection detection Automated blood 11/09/2017 N2N/CCD Import Automated blood 2.32 1.0-4.0 lymphocyte count lymphocyte count (number/volume) (number/volume) Activated partial 11/09/2017 N2N/CCD Import Activated partial 27.7 23.4- 35.0 thromboplastin thromboplastin time (aPTT) in pl time (aPTT) in platelet poor plasma by coagulation assay Prot Ur 11/09/2017 N2N/CCD Import Prot Ur Negative Negative Strip.auto-mCnc Strip.auto-mCnc Specific gravity 11/09/2017 N2N/CCD Import Specific gravity 1.020 1.010- 1.030 of Urine by of Urine by Automated test Automated test strip strip Basophils/leuk NFr 11/09/2017 N2N/CCD Import Basophils/leuk NFr 0.6 0.0- 1.1 Bld Auto Bld Auto Blood monocytes 11/09/2017 N2N/CCD Import Blood monocytes 0.43 0.0-0.8 automated count automated count (number/volume) (number/volume) Eosinophil/leuk 11/09/2017 N2N/CCD Import Eosinophil/leuk 3.7 0.0-6.6 NFr Bld Auto NFr Bld Auto Urine amphetamines 11/09/2017 N2N/CCD Import Urine amphetamines Negative detection by detection by screening method screening method Lymphocytes/leuk 11/09/2017 N2N/CCD Import Lymphocytes/leuk 35.7 20.0- 42.0 NFr Bld Auto NFr Bld Auto Monocytes/leuk NFr 11/09/2017 N2N/CCD Import Monocytes/leuk NFr 6.6 0.0- 10.0 Bld Auto Bld Auto Urine appearance 11/09/2017 N2N/CCD Import Urine appearance Clear Clear determination determination Neutrophils # Bld 11/09/2017 N2N/CCD Import Neutrophils # Bld 3.47 1.8- 7.0 Auto Auto Automated blood 11/09/2017 N2N/CCD Import Automated blood 0.24 0.0-0.5 eosinophil count eosinophil count Neutrophils/leuk 11/09/2017 N2N/CCD Import Neutrophils/leuk 53.4 33.0- 73.0 NFr Bld Auto NFr Bld Auto Urine 11/09/2017 N2N/CCD Import Urine Negative benzodiazepines benzodiazepines measurement by measurement by screening met screening method (mass/volume) Platelet poor 11/09/2017 N2N/CCD Import Platelet poor 1.1 0.9-1.1 plasma plasma international international normalized rati normalized ratio (Inr) by coagulation assay (relative time) Prothrombin time 11/09/2017 N2N/CCD Import Prothrombin time 14.0 12.0- 14.4 (PT) in platelet (PT) in platelet poor plasma poor plasma Urine 11/09/2017 N2N/CCD Import Urine Negative benzoylecgonine benzoylecgonine detection by detection by screening metho screening method RDW RBC Auto 11/09/2017 N2N/CCD Import RDW RBC Auto 40.7 36-51 Serum or plasma 11/09/2017 N2N/CCD Import Serum or plasma 192 39-308 creatine kinase creatine kinase measurement (enzym measurement (enzymatic activity/volume) Urine cannabinoids 11/09/2017 N2N/CCD Import Urine cannabinoids Negative detection by detection by screening method screening method Serum or plasma 11/09/2017 N2N/CCD Import Serum or plasma 1.24 0.76- 1.46 free thyroxine free thyroxine (FT4) measurement (FT4) measurement ( (mass/volume) TSH SerPl-aCnc 11/09/2017 N2N/CCD Import TSH SerPl-aCnc 0.92 0.30-4.20 Urine drug screen 11/09/2017 N2N/CCD Import Urine drug screen * comment comment interpretation interpretation Urine glucose 11/09/2017 N2N/CCD Import Urine glucose Negative Negative measurement by measurement by automated test automated test strip strip (mass/volume) Urine hemoglobin 11/09/2017 N2N/CCD Import Urine hemoglobin Negative Negative detection by detection by automated test automated test strip strip Color Ur 11/09/2017 N2N/CCD Import Color Ur Yellow Yellow Urine methadone 11/09/2017 N2N/CCD Import Urine methadone Negative screen screen Ketones Ur 11/09/2017 N2N/CCD Import Ketones Ur Negative Negative Strip.auto-mCnc Strip.auto-mCnc Urine opiates 11/09/2017 N2N/CCD Import Urine opiates Negative detection by detection by screening method screening method Urine total 11/09/2017 N2N/CCD Import Urine total Negative Negative bilirubin bilirubin detection by detection by automated test automated test strip Ova & Parasite 09/10/2016 [facility] Cryptosporidium NEGATIVE 14, Antigen Screen [address] Specific Ag FOR CRY [address] [place] [address] <SEE NOTE> [phone] Giardia Specific Antigen NEGATIVE FOR SAUNDRA <SEE NOTE> 16 Stool Culture 09/10/2016 [facility] Stool Culture NO ENTERIC PATHO [address] <SEE NOTE> [place] [address] [phone] . ................ <SEE NOTE> N 18 Note: INCLUDES TESTING <SEE NOTE> N 19 . PLESIOMONAS, CAM <SEE NOTE> N 20 . ................ <SEE NOTE> N 21 . YERSINIA AND VIB <SEE NOTE> N 22 . SHOULD BE REQUES <SEE NOTE> N 23 Shiga Toxin 1 Antigen SHIGA TOXIN 1 NO <SEE NOTE> 24 Shiga Toxin 2 Antigen SHIGA TOXIN 2 NO <SEE NOTE> 25 Laboratory test 09/10/2016 [facility] C. Difficile NEGATIVE FOR [address] Toxin A/B C. <SEE NOTE> [place] [address] [phone] Laboratory test 09/04/2016 [facility] C-Reactive 1.82 mg/L <3.0 [address] Protein,[place] [address] [phone] Sedimentation Rate 1 mm/hr N 0-15 28 Inflammatory 09/04/2016 [facility] Atypical <1:20 Neg:<1:20 29 Bowel Disease [address] [place] [address] [phone] Saccharomyces cerevisiae, IgG < 20.0 units 0.0-24.9 30 Saccharomyces cerevisiae, IgA < 20.0 units 0.0-24.9 31 Celiac Disease 09/04/2016 [facility] Immunoglobulin A 222 mg/dL 90-386 Comp AB Profile [address] [place] [address] [phone] Antigliadin Abs, IgG 3 units 0-19 32 Antigliadin Abs, IgA 3 units 0-19 33 Endomysial IgA Antibody Negative Negative t-Transglutaminase IgA <2 U/mL 0-3 34 t-Transglutaminase IgG <2 U/mL 0-5 35 1 B96.81 2 Performed at: RN - [facility] [address] [id number] Credit Card Control Clerk: Manasa Jackson MD, Phone: [phone] 3 I48.O 4 Note: Persistent reduction for 3 months or more in an eGFR <60 mL/min/1.73 m2 defines CKD. Patients with eGFR values >/=60 mL/min/1.73 m2 may also have CKD if evidence of persistent proteinuria is present. The original MDRD equation for estimated GFR is not valid for patients less than 18 years of age. Additional information may be found at www.kdoqi.org. 5 CHOLECYSTITIS, AFIB 6 Tests: Bilirubin, direct and indirest Instructions: 7 Bilirubin, direct and indirest 8 ATRIAL FIB WITH RVR 9 Note: Persistent reduction for 3 months or more in an eGFR <60 mL/min/1.73 m2 defines CKD. Patients with eGFR values >/=60 mL/min/1.73 m2 may also have CKD if evidence of persistent proteinuria is present. The original MDRD equation for estimated GFR is not valid for patients less than 18 years of age. Additional information may be found at www.kdoqi.org. 10 SITTING UP IN BED 11 ATRIAL FLUTTER 12 Tests: TSH WITH REFELX FT3/4 Instructions: 13 TSH WITH REFELX FT3/4 14 UNSPEC ABD PAIN r19.7 15 NEGATIVE FOR CRYPTOSPORIDIUM SPECIFIC ANTIGEN 16 NEGATIVE FOR GIARDIA SPECIFIC ANTIGEN. The specimen will be held for 5 days. Additional testing may be performed upon request if the antigen tests are negative, and the patient is still symptomatic or has traveled to an endemic region. Method: Alere Quik Chek Rapid Membrane Enzyme Immunoassay 17 NO ENTERIC PATHOGENS ISOLATED 18 ................................................... 19 INCLUDES TESTING FOR SALMONELLA, SHIGELLA, AEROMONAS, 20 PLESIOMONAS, CAMPYLOBACTER, AND E. COLI 0157:H7 21 ................................................... 22 YERSINIA AND VIBRIO ARE NOT ROUTINELY SCREENED FOR AND 23 SHOULD BE REQUESTED SEPARATELY 24 SHIGA TOXIN 1 NOT DETECTED 25 SHIGA TOXIN 2 NOT DETECTED Method: ImmunoCard STAT/EHEC Rapid Immunochromatographic Assay 26 NEGATIVE FOR C. DIFFICILE TOXIN A/B. Method: Alere Tox A/B Quik Chek Rapid Immunoassay CORRELATE RESULTS WITH CLINICAL CONDITION. 27 R19.7 28 Method: Sediplast Modified Félix 29 The atypical pANCA pattern has been observed in a significant percentage of patients with ulcerative colitis, primary sclerosing cholangitis and autoimmune hepatitis. ASCA+/PANCA- Suggestive of Crohn's disease ASCA-/PANCA+ Suggestive of Ulcerative colitis 30 Negative <20.0 Equivocal 20.1 - 24.9 Positive >or=25.0 31 Negative <20.0 Equivocal 20.1 - 24.9 [...] controls had antibody for both. Performed at: - [facility] [id number] Credit Card Control Clerk: Manasa Jackson MD, Phone: [phone] Performed at: [facility] [id number] Credit Card Control Clerk: Phill Farmer MD, Phone: [phone] 32 Negative 0 - 19 Weak Positive 20 - 30 Moderate to Strong Positive >30 33 Negative 0 - 19 Weak Positive 20 - 30 Moderate to Strong Positive >30 34 Negative 0 - 3 Weak Positive 4 - 10 Positive >10 Tissue Transglutaminase (tTG) has been identified as the endomysial antigen. Studies have demonstr- ated that endomysial IgA antibodies have over 99% specificity for gluten sensitive enteropathy. 35 Negative 0 - 5 Weak Positive 6 - 9 Positive >9 Procedures Date Code Description Status 07/23/2018 56358 EKG-Tracing And Report Completed 04/05/2018 76430 EGD With Biopsy Completed 03/10/2018 70159 EKG-Tracing And Report Completed 01/13/2018 43361 EKG-Tracing And Report Completed 12/01/2017 16250 EKG-Tracing And Report Completed 11/10/2017 43697 Doppler ECHO Color Flow Mapping Completed 11/10/2017 49169 Doppler Echocardiogram Complete Completed 11/10/2017 44488 Transesophageal Echocardiogram Completed 11/10/2017 16791 Cardioversion External Completed 01/05/2013 35958251 Colonoscopy Completed Encounters Type Date Location Provider Dx Diagnosis Office Visit 07/23/2018 Cardiology Office Adriana Deleon Z01.810 Encounter for 2:40p ABELARDO Pereira preprocedural cardiovascular examination I48.0 Paroxysmal atrial fibrillation G47.33 Obstructive sleep apnea (adult) (pediatric) 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 Office Visit 04/27/2018 4:15p Lonnie Mariee MD B96.81 Helicobacter pylori as the cause of diseases classd elsr E66.9 Obesity, unspecified Office Visit 03/10/2018 10:30a Cardiology Office Valeri Vela I48.0 Paroxysmal atrial MD fibrillation 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 Z01.810 Encounter for preprocedural cardiovascular examination G47.33 Obstructive sleep apnea (adult) (pediatric) Office Visit 03/04/2018 FARA Williamson R10.13 Epigastric pain 4:00p MD Lonnie Office Visit 01/13/2018 Cardiology Adriana Deleon Z01.810 Encounter for 1:00p Office B., PA preprocedural cardiovascular examination I48.0 Paroxysmal atrial fibrillation G47.33 Obstructive sleep apnea (adult) (pediatric) I34.0 Nonrheumatic mitral (valve) insufficiency Office Visit 12/01/2017 1:10p Cardiology Office Pancho I48.91 Unspecified atrial Marlysmally BRogelio, fibrillation PA G47.33 Obstructive sleep apnea (adult) (pediatric) I34.0 Nonrheumatic mitral (valve) insufficiency E66.09 Other obesity due to excess calories Office Visit 11/27/2016 9:15a Lonnie Mariee MD K59.00 Constipation, unspecified R10.9 Unspecified abdominal pain Office Visit 09/04/2016 9:15a Lonnie Mariee MD K59.00 Constipation, unspecified R19.7 Diarrhea, unspecified R10.9 Unspecified abdominal pain K64.9 Unspecified hemorrhoids Office Visit 01/27/2013 9:30a Surgical Office Sydnie, 550.92 Hernia Inguinal Demetrio Matson, W/O Obstruct Or M.D. Gangrene Bilateral Not Recur Plan of Treatment Future Appointment(s):09/20/2018 3:30 pm - Valeri Vela MD at Cardiology [id number]/23/2018 - Adriana Deleon, PAZ01.810 Encounter for preprocedural cardiovascular examinationComments:As above.I48.0 Paroxysmal atrial fibrillationComments:Discontinue OAC. He will return after upcoming bariatric surgery. Would prefer to continue amiodarone until after the procedure.G47.33 Obstructive sleep apnea (adult) (pediatric)Comments:No changes.Z79.01 skilled nursing (current) use of anticoagulantsComments:Discontinue as above.AllFollow up:8 weeks
--- OUTSIDE RECORDS SUMMARY | 2018-08-01 16:23 | XMS REPORT | Continuity of Care Document ---
:1985 External Reference #:[id number] Author Name Valeri Vela MD Address [address] [place] [address] Care Team Providers Name Role Phone Doris Nieves MD Care Team Information Finish Remover Unavailable Doris Nieves MD Primary Care Physician Unavailable Payers Type Date Identification Numbers Payment Provider Subscriber Policy Number: [id number] [facility] Maurilio Palmer PayID: [id number] [address] [place] [address] Advance Directives Description No Information Available Problems [...] Diet Patient follows no dietary restrictions 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'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 Independent [...] DR 40mg 90tabs Take One Teri Sodium 2018 Tablet By Lonnie Mouth MD Every Day Amiodarone HCL / Active Tablets 200mg 30tabs 1 by mouth Rebecca 0000 every day , Dominick Fish M.D., [facility] Dicyclomine HCL / Active Capsules 10mg 1 cap by Unknown 0000 mouth four times a day as needed Amoxicillin 04/27/ Hx Capsules 500mg 56caps 2 capsules B96.81 Teri 2018 by Lonnie guerra, twice a MD day for 14 days Clarithromycin 04/27/ Hx Tablets 500mg 28tabs 1 tab by B96.81 Teri 2018 Lonnie guerra, twice a MD day for 14 days No Active Hx Unknown Medications 2017 - 2017 Eliquis 03/04/ Hx Tablets 5mg 180tab 1 tab by I48.0 Rebecca 2018 - s Dominick guerra 07/23/ twice a Felicita Fish, 2018 [facility] Lactaid Ultra 11/27/ Hx Tablets 9000Unit 90tabs 1 tab with R10.9 Teri Mukherjee every meal Lonnie MD Preparation H 09/04/ Hx Cream 1% 26gm 1tube K64.9 Teri Hydrocortisone 2017 apply , kristen Fleming MD amount to rectum bid Bentyl 09/04/ Hx Capsules 10mg 120cap 1 cap by R10.9 Teri 2017 s mouth four Lonnie, times a MD [...] Hx Tablets 100mg 60tabs 1 by mouth David[place] Acetate 0000 - twice a , Dominick Felicita Fish, 2018 [facility] Immunizations Description No Information Available Vital Signs Date Vital Result Comment 07/23/2018 2:50pm BP Systolic Sitting Left Arm 120 mmHg BP Diastolic Sitting Left Arm 80 mmHg Heart Rate 60 /min Respiratory Rate 18 /min Height 69 inches 5'9" Weight 307.00 lb BMI (Body Mass Index) 45.3 kg/m2 BSA (Body Surface Area) 2.48 m2 [place] body weight in kilograms 73 kg O2 Saturation Level with Exercise 96 % 04/27/2018 4:20pm BP Systolic Sitting Right Arm 122 mmHg BP Diastolic Sitting Right Arm 78 mmHg Heart Rate 70 /min Respiratory Rate 16 /min Height 69 inches 5'9" Weight 305.00 lb BMI (Body Mass Index) 45.0 kg/m2 BSA (Body Surface Area) 2.47 m2 [place] body weight in kilograms 73 kg O2 % BldC Oximetry 97 % 03/10/2018 10:31am BP Systolic Sitting Left Arm 118 mmHg BP Diastolic Sitting Left Arm 78 mmHg Heart Rate 71 /min Respiratory Rate 16 /min Height 69 inches 5'9" Weight 299.00 lb BMI (Body Mass Index) 44.1 kg/m2 BSA (Body Surface Area) 2.45 m2 [place] body weight in kilograms 73 kg O2 % BldC Oximetry 95 % 03/04/2018 4:23pm BP Systolic Sitting Left Arm 126 mmHg BP Diastolic Sitting Left Arm 81 mmHg Heart Rate 60 /min Respiratory Rate 16 /min Height 69 inches 5'9" Weight 298.00 lb BMI (Body Mass Index) 44.0 kg/m2 BSA (Body Surface Area) 2.45 m2 [place] body weight in kilograms 73 kg O2 % BldC Oximetry 96 % 01/13/2018 1:10pm BP Systolic Sitting Left Arm 122 mmHg BP Diastolic Sitting Left Arm 88 mmHg Heart Rate 73 /min Respiratory Rate 18 /min Height 69 inches 5'9" Weight 302.00 lb BMI (Body Mass Index) 44.6 kg/m2 BSA (Body Surface Area) 2.46 m2 [place] body weight in kilograms 73 kg O2 % BldC Oximetry 94 % Ora 12/01/2017 1:06pm Heart Rate 69 /min Respiratory Rate 18 /min Height 69 inches 5'9" Weight 305.00 lb BMI (Body Mass Index) 45.0 kg/m2 BSA (Body Surface Area) 2.47 m2 [place] body weight in kilograms 73 kg O2 % BldC Oximetry 97 % 11/27/2016 9:17am BP Systolic Sitting Left Arm 100 mmHg BP Diastolic Sitting Left Arm 76 mmHg Heart Rate 78 /min Respiratory Rate 18 /min Height 69 inches 5'9" Weight 287.00 lb BMI (Body Mass Index) 42.4 kg/m2 BSA (Body Surface Area) 2.41 m2 [place] body weight in kilograms 73 kg 09/04/2016 [...] Result H/L Range Note Laboratory test 06/23/2018 [facility] H. Pylori Negative Negative 1, [address] [place] [address] [phone] TSH Reflex FT4 03/10/2018 [facility] Thyroid Stim 2.06 uIU/mL N 0.30-4.20 3 And/Or FT3 [address] [place] [address] [phone] Reflex add FT3? Y Reflex add FT4? Y CBC W/Automated Diff 03/10/2018 [facility] White Blood 5.0 K/uL N 3.4-10.[address] [place] [address] [phone] Red Blood Count 5.51 M/uL N 4.20-5.80 [...] 33.0-73.0 Lymph % 34.4 % N 20.0-42.0 [place] % 7.4 % N 0.0-10.0 Eo% 3.8 % N 0.0-6.6 Bas% 0.6 % N 0.0-1.1 Neut# 2.67 K/uL N 1.8-7.0 Lymph # 1.71 K/uL N 1.0-4.0 [place] # 0.37 K/uL N 0.0-0.8 Eos # 0.19 K/uL N 0.0-0.5 Baso # 0.03 K/uL N 0.0-0.1 Magnesium 03/10/2018 [facility] Magnesium 2.0 mg/dL N 1.8-2.4 [address] [place], [place] [id number] [phone] Reflex add FT3? Y Reflex add FT4? Y Comprehensive Metabolic 03/10/2018 [facility] Glucose 103 mg/dL N 74-106 Panel [address] [place] [address] [phone] BUN 14 mg/dL N 7-18 Creatinine 1.1 [...] add FT3? Y Reflex add FT4? Y Lymphocytes/leuk 02/16/2018 N2N/CCD Import Lymphocytes/leuk 37.6 20.0- 42.0 NFr Bld Auto NFr Bld Auto Monocytes/leuk NFr 02/16/2018 N2N/CCD Import Monocytes/leuk NFr [...] N2N/CCD Import Serum carbon 27 21-32 dioxide measurement dioxide measurement Serum or plasma 02/16/2018 N2N/CCD Import Serum or plasma 8.6 8.5-10.1 calcium measurement calcium measurement (mass/volume) (mass/volume) Serum or plasma 02/16/2018 N2N/CCD Import Serum or plasma 1.1 0.6-1.3 creatinine creatinine measurement measurement (mass/volum (mass/volume) Serum or plasma 02/16/2018 N2N/CCD Import Serum or plasma 0.2 0.0-0.2 direct bilirubin direct bilirubin measurement (mass measurement (mass/volume) Serum or plasma 02/16/2018 N2N/CCD Import Serum or plasma 100 74-106 glucose measurement [...] Import Serum or plasma 5.4 urea urea nitrogen/creatinine nitrogen/creatinine mass rati mass ratio Serum sodium 02/16/2018 N2N/CCD Import Serum sodium 142 136-145 measurement measurement Aot Request 02/16/2018 [facility] Aot Request Test(s) 5, [address] added 6 [place] [id number] [phone] Tests to be added: Bilirubin, direc <SEE [...] corpuscular hemoglobin hemoglobin (mass per erythrocyte) Automated 02/16/2018 N2N/CCD Import Automated 34.5 31.7-36.0 erythrocyte mean erythrocyte mean corpuscular corpuscular hemoglobin hemoglobin concentration measurement (mass/volume) Automated 02/16/2018 N2N/CCD Import Automated 83.8 80.0-96.0 erythrocyte mean erythrocyte mean corpuscular volume corpuscular volume Basophils/leuk NFr 02/16/2018 N2N/CCD Import Basophils/leuk NFr 0.6 0.0- 1.1 Bld Auto Bld Auto Blood erythrocytes 02/16/2018 N2N/CCD Import Blood erythrocytes 5.88 High 4.20-5.80 automated count automated count (number/volume) (number/volume) Blood hemoglobin 02/16/2018 N2N/CCD Import Blood hemoglobin 17.0 12.8- 17.0 measurement measurement (mass/volume) (mass/volume) Blood leukocytes 02/16/2018 N2N/CCD Import Blood leukocytes 7.0 3.4- 10.5 automated count automated count (number/volume) (number/volume) Blood monocytes 02/16/2018 N2N/CCD Import Blood monocytes 0.63 0.0-0.8 automated count automated count (number/volume) (number/volume) Chloride SerPl-sCnc 02/16/2018 N2N/CCD Import Chloride 106 98-107 SerPl-sCnc Eosinophil/leuk NFr 02/16/2018 N2N/CCD Import Eosinophil/leuk 4.6 0.0- 6.6 Bld Auto NFr Bld Auto Serum or plasma 02/15/2018 N2N/CCD Import Serum or plasma 1.4 0.4-1.9 lactate measurement lactate (moles/volume) measurement (moles/volume) Alt SerPl-cCnc 02/13/2018 N2N/CCD Import Alt SerPl-cCnc 41 12-78 pH Ur Strip.auto 02/13/2018 N2N/CCD Import pH [...] protein measurement protein (mass/volume) measurement (mass/volume) Serum or plasma 02/13/2018 N2N/CCD Import Serum [...] measurement (ma measurement (mass/volume) Prot Ur 02/13/2018 N2N/CCD Import Prot Ur Negative Negative Strip.auto-mCnc Strip.auto-mCnc Nitrite Ur Ql 02/13/2018 N2N/CCD Import Nitrite Ur Ql Negative Negative Strip.auto Strip.auto Leukocyte esterase 02/13/2018 N2N/CCD Import Leukocyte esterase Negative Negative Ur Ql Strip.auto Ur Ql Strip.auto Albumin/Glob SerPl 02/13/2018 N2N/CCD Import Albumin/Glob SerPl 1.0 Color Ur 02/13/2018 N2N/CCD Import Color Ur Yellow Yellow Globulin Ser 02/13/2018 N2N/CCD Import Globulin Ser 3.6 1.9-4.3 Calc-mCnc Calc-mCnc Ketones Ur 02/13/2018 N2N/CCD Import Ketones Ur Trace High Negative Strip.auto-mCnc Strip.auto-mCnc Globulin Ser 11/10/2017 N2N/CCD Import Globulin Ser 3.1 1.9-4.3 Calc-mCnc Calc-mCnc Chloride SerPl-sCnc 11/10/2017 N2N/CCD Import Chloride 106 98-107 SerPl-sCnc Potassium 11/10/2017 N2N/CCD Import Potassium 4.1 3.5-5.1 SerPl-sCnc SerPl-sCnc RDW RBC Auto-Rto 11/10/2017 N2N/CCD Import RDW RBC Auto-Rto 13.7 11.6- 15.8 Serum carbon 11/10/2017 N2N/CCD Import Serum carbon 30 21-32 dioxide measurement dioxide measurement Serum or plasma 11/10/2017 N2N/CCD Import Serum or plasma 3.3 Low 3.4- 5.0 albumin measurement albumin (mass/volume) measurement (mass/volume) Serum or plasma 11/10/2017 N2N/CCD Import Serum or plasma 67 45-117 alkaline alkaline phosphatase phosphatase measurement ( measurement (enzymatic activity/volume) Serum or plasma 11/10/2017 N2N/CCD Import Serum or plasma 20 15-37 aspartate aspartate aminotransferase aminotransferase measure measurement (enzymatic activity/volume) Serum or plasma 11/10/2017 N2N/CCD Import Serum or plasma 8.4 Low 8.5- 10.1 calcium measurement calcium (mass/volume) measurement (mass/volume) Serum or plasma 11/10/2017 N2N/CCD Import Serum or plasma 1.1 0.6-1.3 creatinine creatinine measurement measurement (mass/volum (mass/volume) Serum or plasma 11/10/2017 N2N/CCD Import Serum or plasma 106 74-106 glucose measurement glucose (mass/volume) measurement (mass/volume) Serum or plasma 11/10/2017 N2N/CCD Import Serum or plasma 6.4 6.4-8.2 protein measurement protein (mass/volume) measurement (mass/volume) Serum or plasma 11/10/2017 N2N/CCD Import Serum or plasma 0.9 0.2-1.0 total bilirubin total bilirubin measurement (mass/ measurement (mass/volume) Serum or plasma 11/10/2017 N2N/CCD Import Serum or plasma 16 7-18 urea nitrogen urea nitrogen measurement measurement (mass/vo (mass/volume) Serum sodium 11/10/2017 N2N/CCD Import Serum sodium 140 136-145 measurement measurement CBC 11/10/2017 [facility] White Blood Count 6.4 K/uL N 3.4-10.5 8 [address] [place] [address] [phone] Red Blood Count 5.59 M/uL N 4.20-5.80 Hemoglobin 16.5 gm/dL N 12.8-17.0 Hematocrit 47.5 % N 38.0-48.0 Mean Cell Volume 85.0 fl N 80.0-96.0 Mean Corpuscular HGB 29.5 pg N 27.0-33.0 Mean Corpuscular HGB Conc 34.7 g/dL N 31.7-36.0 Platelet Count 261 K/uL N 155-360 Red Cell Distri Width %CV 13.7 % N 11.6-15.8 Mean Platelet Volume 9.9 fL N 6.6-10.6 Unloinc 11/10/2017 N2N/CCD Import [place] Sitting Up In Bed Continuous Oximetry 11/10/2017 [facility] Oximetry 98 % N 93-98 [address] [place] [address] [phone] Fio2 21 N 21-100 Heart Rate 85 BPM Patient Status RESTING Patient Position SITTING UP IN BE <SEE NOTE> 9 [place]inc 11/10/2017 N2N/CCD Import [place] Ambulating Heart rate by 11/10/2017 N2N/CCD Import Heart rate by 102 oximetry oximetry Determination of 11/10/2017 N2N/CCD Import Determination of 21 21-100 inhaled oxygen inhaled oxygen concentration (vol concentration (volume fraction) Arterial blood 11/10/2017 N2N/CCD Import Arterial blood 93 93-98 oxygen saturation oxygen saturation measurement by pu measurement by pulse oximetry Continuous Oximetry 11/10/2017 [facility] Oximetry 93 % N 93-98 [address] [place] [address] [phone] Fio2 21 N 21-100 Heart Rate 102 BPM Patient Status AMBULATING Comprehensive Metabolic 11/10/2017 [facility] Glucose 106 mg/dL N 74-106 Panel [address] [place] [address] [phone] BUN 16 mg/dL N 7-18 Creatinine 1.1 mg/dL N 0.6-1.3 Glom Filtration Rate, Estimate >60 mL/min >60 If >60 mL/min >60 10 BUN/Creat 14.5 ratio Sodium 140 mmol/L N [...] 12-78 Alkaline Phosphatase 67 U/L N 45-117 Laboratory test 11/10/2017 [facility] Magnesium 2.1 mg/dL N 1.8-2.4 finding [address] [place] [address] [phone] Alt SerPl-cCnc 11/10/2017 N2N/CCD Import Alt SerPl-cCnc 39 12-78 Blood leukocytes 11/10/2017 N2N/CCD Import Blood leukocytes 6.4 3.4- 10.5 automated count automated count (number/volume) (number/volume) Blood hemoglobin 11/10/2017 N2N/CCD Import Blood hemoglobin 16.5 12.8- 17.0 measurement measurement (mass/volume) (mass/volume) Blood 11/10/2017 N2N/CCD Import Blood 5.59 4.20-5.80 erythrocytes erythrocytes automated count automated count (number/volume) (number/volume) BUN/Creat SerPl 11/10/2017 N2N/CCD Import BUN/Creat SerPl 14.5 Automated 11/10/2017 N2N/CCD Import Automated 85.0 80.0-96.0 erythrocyte mean erythrocyte mean corpuscular corpuscular volume volume Automated 11/10/2017 N2N/CCD Import Automated 34.7 31.7-36.0 erythrocyte mean erythrocyte mean corpuscular corpuscular hemoglobin hemoglobin concentration measurement (mass/volume) Automated 11/10/2017 N2N/CCD Import Automated 29.5 27.0-33.0 erythrocyte mean erythrocyte mean corpuscular corpuscular hemoglobin hemoglobin (mass per erythrocyte) Automated blood 11/10/2017 N2N/CCD Import Automated blood 9.9 6.6-10.6 platelet mean platelet mean volume volume measurement measurement Automated blood 11/10/2017 N2N/CCD Import Automated blood 261 155-360 platelet count platelet count Automated blood 11/10/2017 N2N/CCD Import Automated blood 47.5 38.0- 48.0 hematocrit hematocrit (volume fraction) (volume fraction) Anion Gap 11/10/2017 N2N/CCD Import Anion Gap 4 Low 8-16 SerPl-sCnc SerPl-sCnc Albumin/Glob 11/10/2017 N2N/CCD Import Albumin/Glob 1.1 SerPl SerPl Basophils/leuk 11/09/2017 N2N/CCD Import Basophils/leuk 0.6 0.0-1.1 NFr Bld Auto NFr Bld Auto Automated blood 11/09/2017 N2N/CCD Import Automated blood 2.32 1.0-4.0 lymphocyte count lymphocyte count (number/volume) (number/volume) Blood monocytes 11/09/2017 N2N/CCD Import Blood monocytes 0.43 0.0-0.8 automated count automated count (number/volume) (number/volume) Eosinophil/leuk 11/09/2017 N2N/CCD Import Eosinophil/leuk 3.7 0.0-6.6 NFr Bld Auto NFr Bld Auto Lymphocytes/leuk 11/09/2017 N2N/CCD Import Lymphocytes/leuk 35.7 20.0- 42.0 NFr Bld Auto NFr Bld Auto Monocytes/leuk 11/09/2017 N2N/CCD Import Monocytes/leuk 6.6 0.0-10.0 NFr Bld Auto NFr Bld Auto Neutrophils # Bld 11/09/2017 N2N/CCD Import Neutrophils # 3.47 1.8-7.0 Auto Bld Auto Neutrophils/leuk 11/09/2017 N2N/CCD Import Neutrophils/leuk 53.4 33.0- 73.0 NFr Bld Auto NFr Bld Auto Platelet poor 11/09/2017 N2N/CCD Import Platelet poor 1.1 0.9-1.1 plasma plasma international international normalized rati normalized ratio (Inr) by coagulation assay (relative time) Prothrombin time 11/09/2017 N2N/CCD Import Prothrombin time 14.0 12.0- 14.4 (PT) in platelet (PT) in platelet poor plasma poor plasma RDW RBC Auto 11/09/2017 N2N/CCD Import RDW RBC Auto 40.7 36-51 Serum or plasma 11/09/2017 N2N/CCD Import Serum or plasma 192 39-308 creatine kinase creatine kinase measurement measurement (enzym (enzymatic activity/volume) Serum or plasma 11/09/2017 N2N/CCD Import Serum or plasma 1.24 0.76- 1.46 free thyroxine free thyroxine (FT4) measurement (FT4) ( measurement (mass/volume) TSH SerPl-aCnc 11/09/2017 N2N/CCD Import TSH SerPl-aCnc 0.92 0.30-4.20 Color Ur 11/09/2017 N2N/CCD Import Color Ur Yellow Yellow Ketones Ur 11/09/2017 N2N/CCD Import Ketones Ur Negative Negative Strip.auto-mCnc Strip.auto-mCnc Leukocyte 11/09/2017 N2N/CCD Import Leukocyte Negative Negative esterase Ur Ql esterase Ur Ql Strip.auto Strip.auto Nitrite Ur Ql 11/09/2017 N2N/CCD Import Nitrite Ur Ql Negative Negative Strip.auto Strip.auto Prot Ur 11/09/2017 N2N/CCD Import Prot Ur Negative Negative Strip.auto-mCnc Strip.auto-mCnc Screening urine 11/09/2017 N2N/CCD Import Screening urine Negative barbiturate barbiturate detection detection Specific gravity 11/09/2017 N2N/CCD Import Specific gravity 1.020 1.010- 1.0 of Urine by of Urine by 30 Automated test Automated test strip strip Urine 11/09/2017 N2N/CCD Import Urine Negative amphetamines amphetamines detection by detection by screening method screening method Urine appearance 11/09/2017 N2N/CCD Import Urine appearance Clear Clear determination determination Urine 11/09/2017 N2N/CCD Import Urine Negative benzodiazepines benzodiazepines measurement by measurement by screening met screening method (mass/volume) Urine 11/09/2017 N2N/CCD Import Urine Negative benzoylecgonine benzoylecgonine detection by detection by screening metho screening method Urine 11/09/2017 N2N/CCD Import Urine Negative cannabinoids cannabinoids detection by detection by screening method screening method Automated blood 11/09/2017 N2N/CCD Import Automated blood 0.24 0.0-0.5 eosinophil count eosinophil count Automated blood 11/09/2017 N2N/CCD Import Automated blood 0.04 0.0-0.1 basophil count basophil count (count/volume) (count/volume) Activated partial 11/09/2017 N2N/CCD Import Activated 27.7 23.4-35.0 thromboplastin partial time (aPTT) in pl thromboplastin time (aPTT) in platelet poor plasma by coagulation assay * Miscellaneous 11/09/2017 N2N/CCD Import * Miscellaneous Already studies (set) studies (set) done Aot Request 11/09/2017 [facility] Aot Request Already 11, [address] done [address] [place] [address] [phone] Tests to be added: TSH WITH REFELX <SEE NOTE> 13 pH Ur Strip.auto 11/09/2017 N2N/CCD Import pH Ur Strip.auto 7.0 6.5-7.5 Urobilinogen Ur 11/09/2017 N2N/CCD Import Urobilinogen Ur 1.0 0.2-1.0 Strip-aCnc Strip-aCnc Urine total 11/09/2017 N2N/CCD Import Urine total Negative Negative bilirubin bilirubin detection by detection by automated test automated test strip Urine opiates 11/09/2017 N2N/CCD Import Urine opiates Negative detection by detection by screening method screening method Urine methadone 11/09/2017 N2N/CCD Import Urine methadone Negative screen screen Urine drug screen 11/09/2017 N2N/CCD Import Urine drug screen * comment comment interpretation interpretation Urine glucose 11/09/2017 N2N/CCD Import Urine glucose Negative Negative measurement by measurement by automated test automated test strip strip (mass/volume) Urine hemoglobin 11/09/2017 N2N/CCD Import Urine hemoglobin Negative Negative detection by detection by automated test automated test strip strip Ova & Parasite 09/10/2016 [facility] Cryptosporidium NEGATIVE 14, Antigen Screen [address] Specific Ag FOR CRY [address] [place] [address] <SEE NOTE> [phone] Giardia Specific Antigen NEGATIVE FOR SAUNDRA <SEE NOTE> 16 Stool Culture 09/10/2016 [facility] Stool Culture NO ENTERIC PATHO [address] <SEE NOTE> [place] [address] [phone] . ................ <SEE NOTE> N 18 Note: [...] [address] Toxin A/B C. <SEE NOTE> [place], [place] [address] [phone] Laboratory test 09/04/2016 [facility] C-Reactive 1.82 mg/L <3.0 [address] Protein,[place] [address] [phone] Sedimentation Rate 1 mm/hr N 0-15 28 Inflammatory 09/04/2016 [facility] Atypical <1:20 Neg:<1:20 29 Bowel Disease [address] [place] [address] [phone] Saccharomyces cerevisiae, IgG < 20.0 units 0.0-24.9 30 Saccharomyces cerevisiae, IgA < 20.0 units 0.0-24.9 31 Celiac Disease 09/04/2016 [facility] Immunoglobulin A 222 mg/dL 90-386 Comp AB Profile [address] [place] [address] [phone] Antigliadin Abs, IgG 3 units 0-19 32 Antigliadin Abs, IgA 3 units 0-19 33 Endomysial IgA Antibody Negative Negative t-Transglutaminase IgA <2 U/mL 0-3 34 t-Transglutaminase IgG <2 U/mL 0-5 35 1 B96.81 2 Performed at: RN - [facility] [address] [id number] [employer] Attendant: Manasa Jackson MD, Phone: [phone] 3 I48.O 4 Note: Persistent reduction for [...] indirest 8 ATRIAL FIB WITH RVR 9 SITTING UP IN BED 10 Note: Persistent reduction for 3 months or more in an eGFR <60 mL/min/1.73 m2 defines CKD. Patients with eGFR values >/=60 mL/min/1.73 m2 may also have CKD if evidence of persistent proteinuria is present. The original MDRD equation for estimated GFR is not valid for patients less than 18 years of age. Additional information may be found at www.kdoqi.org. 11 ATRIAL FLUTTER 12 Tests: TSH WITH [...] controls had antibody for both. Performed at: [facility] [id number] [employer] Attendant: Manasa Jackson MD, Phone: [phone] Performed at: [facility] [id number] [employer] Attendant: Phill Farmer MD, Phone: [phone] Negative 0 - 19 Weak Positive [...] >9 Procedures Date Code Description Status 07/23/2018 94562 EKG-Tracing And Report Completed 04/05/2018 68769 EGD With Biopsy Completed 03/10/2018 37521 EKG-Tracing And Report Completed 01/13/2018 98643 EKG-Tracing And Report Completed 12/01/2017 13088 EKG-Tracing And Report Completed 11/10/2017 46492 Doppler ECHO Color Flow Mapping Completed 11/10/2017 17113 Doppler Echocardiogram Complete Completed 11/10/2017 74529 Transesophageal Echocardiogram Completed 11/10/2017 53276 Cardioversion External Completed 01/05/2013 [id number] Colonoscopy Completed Encounters Type Date Location Provider Dx Diagnosis Office Visit 07/23/2018 Cardiology Office Adriana Deleon Z01.810 Encounter for 2:40p B., PA preprocedural cardiovascular examination I48.0 Paroxysmal atrial fibrillation G47.33 Obstructive sleep apnea (adult) (pediatric) 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 Office Visit 04/27/2018 4:15p Lonnie Mariee MD B96.81 Helicobacter pylori as the cause of diseases classd elswhr E66.9 Obesity, unspecified Office Visit 03/10/2018 10:30a Cardiology Office Valeri Vela I48.0 Paroxysmal atrial MD fibrillation 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 Z01.810 Encounter for [...] 1:10p Cardiology Office Pancho I48.91 Unspecified atrial Martiffanie Pereira, fibrillation PA G47.33 Obstructive sleep apnea (adult) (pediatric) I34.0 Nonrheumatic mitral (valve) insufficiency E66.09 Other obesity due to excess calories Office Visit 11/27/2016 9:15a Lonnie Mariee MD K59.00 Constipation, unspecified R10.9 Unspecified abdominal pain Office Visit 09/04/2016 9:15a Lonnie Mariee MD K59.00 Constipation, unspecified R19.7 Diarrhea, unspecified R10.9 Unspecified abdominal pain K64.9 Unspecified hemorrhoids Office Visit 01/27/2013 9:30a Surgical Office Cricket Otoole.92 Hernia Inguinal Demetrio Matson, W/O Obstruct Or M.D. Gangrene Bilateral Not Recur Plan of Treatment Future Appointment(s):09/20/2018 3:30 pm - Valeri Vela MD at Cardiology Qmyehy7407/23/2018 - Adriana Deleon, PAZ01.810 Encounter for preprocedural cardiovascular examinationComments:As above.I48.0 Paroxysmal atrial fibrillationComments:Discontinue OAC. He will return after upcoming bariatric surgery. Would prefer to continue amiodarone until after the procedure.G47.33 Obstructive sleep apnea (adult) (pediatric)Comments:No changes.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Comments:Discontinue as above.AllFollow up:8 weeks
[2018-08-01 16:29] VITALS: BP 132/76
[2018-08-01] MEDS ORDERED: predniSONE TAB* 20 MG PO ONE (17:34)
--- NOTE | 2018-08-01 17:35 | UC ---
Respiratory Complaint HPI - HPI Summary HPI Summary: 33 y/o male with PMH + for a fib, presents feeling like "crap" since Thursday, no GI symptoms, + wheezing, body aches, chills, no fever. No throat pain, no ear pain. Denies TOB use, no ho lung disease. - History of Current Complaint Chief Complaint: UCRespiratory Stated Complaint: COUGH/CHEST CONGESTION Time Seen by Provider: 08/01/18 16:26 Hx Obtained From: Patient Onset/Duration: Sudden Onset Severity Initially: Moderate Severity Currently: Moderate Pain Intensity: 5 Pain Scale Used: 0-10 Numeric Character: Cough: Nonproductive Aggravating Factors: Deep Breaths Alleviating Factors: OTC Meds Associated Signs And Symptoms: Positive: Dyspnea, Chills, Sinus Discomfort - Allergies/Home Medications Allergies/Adverse Reactions: Allergies Allergy/AdvReac Type Severity Reaction Status Date / Time ciprofloxacin Allergy See Comment Verified 08/01/18 16:24 Home Medications: Home Medications Amiodarone TAB* [Cordarone Tab*] 200 mg PO DAILY 08/01/18 [History Confirmed 04/09] guaiFENesin [Mucinex] 600 mg PO ONCE 08/01/18 [History Confirmed 08/01/18] PMH/Surg Hx/FS Hx/Imm Hx Previously Healthy: Yes - a fib Other History Of: Anticoagulant Therapy - Surgical History Surgical History: Yes Surgery Procedure, Year, and Place: 2002 - Family History Known Family History: Positive: Hypertension - Social History Alcohol Use: None Substance Use Type: None Smoking Status (MU): Former Smoker Type: Cigarettes Length of Time of Smoking/Using Tobacco: On and Off 4 Years Have You Smoked in the Last Year: Yes When Did the Patient Quit Smoking/Using Tobacco: 2012 - Immunization History Most Recent Influenza Vaccination: Current for Review of Systems All Other Systems Reviewed And Are Negative: Yes Constitutional: Positive: Chills, Fatigue Respiratory: Positive: Shortness Of Breath, Cough Is Patient Immunocompromised?: No Physical Exam Triage Information Reviewed: Yes Appearance: No Pain Distress, Well-Nourished, Ill-Appearing - mild to moderate Vital Signs: Initial Vital Signs Temp 98.5 F 08/01/18 16:25 Pulse 66 08/01/18 16:25 Resp 17 08/01/18 16:25 BP 132/76 08/01/18 16:25 Pulse Ox 98 08/01/18 16:25 Vital Signs Reviewed: Yes Eyes: Positive: Conjunctiva Clear ENT: Positive: Pharynx normal, TMs normal, Uvula midline. Negative: TM bulging , TM dull, TM red, Tonsillar swelling, Tonsillar exudate, Sinus tenderness Neck: Positive: Supple, Nontender, No Lymphadenopathy Respiratory: Positive: Chest non-tender, Normal breath sounds, No respiratory distress, No accessory muscle use, Wheezing - b/l lobes throughout.. Negative: Crackles, Rhonchi, Stridor Cardiovascular: Positive: RRR, No Murmur Musculoskeletal Exam: Normal Neurological Exam: Normal Psychological Exam: Normal UC Diagnostic Evaluation - Laboratory O2 Sat by Pulse Oximetry: 98 Respiratory Course/Dx - Course Course Of Treatment: CXR- negative for disease, prednisone given after discussing with Dr. Cotton, follow up wt PCP if no improvement - Differential Dx/Diagnosis Differential Diagnosis/HQI/PQRI: Influenza, Laryngitis, Tuberculosis Provider Diagnosis: Bronchitis Discharge - Sign-Out/Discharge Documenting (check all that apply): Patient Departure All imaging exams completed and their final reports reviewed: Yes - Discharge Plan Condition: Good Disposition: HOME Prescriptions: predniSONE [Prednisone 20 MG TAB] 20 mg PO DAILY #18 tablet Patient Education Materials: Acute Bronchitis (ED) Forms: *Work Release Referrals: Doris Nieves MD [Primary Care Provider] - Additional Instructions: - Increase fluid intake - Humidifier at night - Over the counter cough medication as needed - Over the counter/ Antihistamines for congestion - Motrin/ ibuprofen as needed for headache/ body aches - STeroids as directed to help decrease symptoms, wheezing - Billing Disposition and Condition Condition: GOOD Disposition: Home
== END 2018-08-01 17:41 | disposition home or self-care (01) ==
LOC: UCCORT 15:35
DX: J40 Bronchitis, not specified as acute or chronic (principal); I48.91 Unspecified atrial fibrillation; Z79.01 Long term (current) use of anticoagulants; Z87.891 Personal history of nicotine dependence; Z88.1 Allergy status to other antibiotic agents
CPT/HCPCS: 71046; 99212; G0463; J7512

== ENCOUNTER 2018-11-15 09:15 | Emergency (ER) | payer BC ==
[2018-11-15 09:28] VITALS: BP 112/66
[2018-11-15] MEDS ORDERED: Tetan/Diph/Pertus SYR(Tdap)* 0.5 ML SYR(BOOSTRIX) use SYR IM ONE (10:20)
[2018-11-15] MEDS ORDERED: Lidocaine 1%* 5 ML VIAL INJ ONE ×2 (10:20→10:23)
--- NOTE | 2018-11-15 10:29 | UC ---
Laceration HPI - HPI Summary HPI Summary: approx 1 hours ago, patient cut L index finger with kitchen knife while cutting watermelon, bleeding controlled with pressure, is able to move finger - History Of Current Complaint Chief Complaint: UCUpperExtremity Stated Complaint: FINGER LACERATION Time Seen by Provider: 11/15/18 10:14 Hx Obtained From: Patient Laceration Location: Finger Mechanism Of Injury: Sharp Trauma Onset/Duration: Sudden Onset Severity: Moderate Pain Intensity: 5 Aggravating Factors: Nothing Related History: Dominant Hand Right - Allergies/Home Medications Allergies/Adverse Reactions: Allergies Allergy/AdvReac Type Severity Reaction Status Date / Time ciprofloxacin Allergy See Comment Verified 11/15/18 09:28 Home Medications: Home Medications NK [No Home Medications Reported] 11/15/18 [History Confirmed 11/15/18] PMH/Surg Hx/FS Hx/Imm Hx Previously Healthy: Yes Other History Of: Anticoagulant Therapy - Surgical History Surgical History: Yes Surgery Procedure, Year, and Place: L wrist 2002 - Family History Known Family History: Positive: Hypertension - Social History Occupation: Employed Full-time Lives: With Family Alcohol Use: None Substance Use Type: None Smoking Status (MU): Former Smoker Type: Cigarettes Length of Time of Smoking/Using Tobacco: On and Off 4 Years Have You Smoked in the Last Year: Yes When Did the Patient Quit Smoking/Using Tobacco: 2012 - Immunization History Most Recent Influenza Vaccination: Current for Review of Systems All Other Systems Reviewed And Are Negative: Yes Constitutional: Positive: Negative Respiratory: Positive: Negative Cardiovascular: Positive: Negative Neurovascular: Positive: Negative. Negative: Decreased Sensation Musculoskeletal: Positive: Negative Neurological: Positive: Negative Psychological: Positive: Negative Is Patient Immunocompromised?: No Physical Exam Triage Information Reviewed: Yes Appearance: Well-Appearing, No Pain Distress, Well-Nourished Vital Signs: Initial Vital Signs Temp 97.7 F 11/15/18 09:23 Pulse 61 11/15/18 09:23 Resp 18 11/15/18 09:23 BP 112/66 11/15/18 09:23 Pulse Ox 100 11/15/18 09:23 Vital Signs Reviewed: Yes Respiratory Exam: Normal Respiratory: Positive: Lungs clear Cardiovascular Exam: Normal Cardiovascular: Positive: Pulses Normal Musculoskeletal Exam: Normal Musculoskeletal: Positive: Strength Intact, ROM Intact Neurological Exam: Normal Psychological Exam: Normal Skin: Positive: Other - 2 cm laceration L index finger Laceration Repair - Laceration Repair 1 Description: Irregular Laceration Size After Repair: Length (cm) - 2cm, Width (mm) - 5mm, Depth (mm) - 3mm Modified For Repair: No Type Injection: Local Anesthesia Used: 1.0% Lido Cleansing Completed Via Routine Prep: Yes Irrigation With Pressure Irrigation Device: Yes Closure Material: Sutures Closure Method: Single Layer - 6 4.0 sutures placed Suture Of: Skin Suture Type: Nylon Laceration Course/Dx - Differential Dx - Laceration/Wound Differental Diagnoses: Avulsion, Laceration - Diagnosis Provider Diagnosis: Laceration of left index finger Discharge - Sign-Out/Discharge Documenting (check all that apply): Patient Departure All imaging exams completed and their final reports reviewed: No Studies - Discharge Plan Condition: Good Disposition: HOME Patient Education Materials: Laceration (ED) Referrals: Doris Nieves MD [Primary Care Provider] - Additional Instructions: keep wound clean and dry, elevate hand change dressing daily wear splint for 2-3 days return for suture removal in 10 days - Billing Disposition and Condition Condition: GOOD Disposition: Home - Attestation Statements Provider Attestation: I was available for consult. This patient was seen by the ARIANNA. The patient was not presented to, seen by, or examined by me. -Clari
== END 2018-11-15 11:09 | disposition home or self-care (01) ==
LOC: UCEAST 09:15
DX: S61.211A Laceration without foreign body of left index finger without damage to nail, initial encounter (principal); Z88.1 Allergy status to other antibiotic agents; Z87.891 Personal history of nicotine dependence; W26.0XXA Contact with knife, initial encounter; Y93.89 Activity, other specified; Y92.9 Unspecified place or not applicable
CPT/HCPCS: 12001; 90471; 90715; 99211; G0463

== ENCOUNTER 2019-01-14 18:45 | Emergency (ER) | payer BC ==
[2019-01-14] MEDS ORDERED: Lidocaine 1% MPF ** 5 ML VIAL INJ ONE (19:00)
--- NOTE | 2019-01-14 19:02 | UC ---
Laceration HPI - HPI Summary HPI Summary: 33-year-old male who was doing a order fishing trip day when he threw a patient up on the board to be clean which had some knives which he grabbed to catch and cause a laceration to his left thumb dorsal aspect. Last tetanus was on of this year. - History Of Current Complaint Stated Complaint: LEFT THUMB LAC Time Seen by Provider: 01/14/19 18:56 Hx Obtained From: Patient Laceration Location: Finger - Left thumb laceration Mechanism Of Injury: Sharp Trauma Onset/Duration: Sudden Onset Severity: Moderate Aggravating Factors: Movement - Allergies/Home Medications Allergies/Adverse Reactions: Allergies Allergy/AdvReac Type Severity Reaction Status Date / Time ciprofloxacin Allergy See Comment Verified 01/14/19 19:07 PMH/Surg Hx/FS Hx/Imm Hx Previously Healthy: Yes Cardiovascular History: Atrial Fibrillation GI/ History: Other - Colitis Other History Of: Anticoagulant Therapy - Surgical History Surgical History: Yes Surgery Procedure, Year, and Place: [facility] 2002 - Family History Known Family History: Positive: Hypertension - Social History Alcohol Use: None Substance Use Type: None Smoking Status (MU): Former Smoker Type: Cigarettes Length of Time of Smoking/Using Tobacco: On and Off 4 Years Have You Smoked in the Last Year: Yes When Did the Patient Quit Smoking/Using Tobacco: 2012 - Immunization History Most Recent Influenza Vaccination: Current for Review of Systems All Other Systems Reviewed And Are Negative: Yes Skin: Positive: Other - Laceration dorsum of left thumb.Bleeding is controlled Is Patient Immunocompromised?: No Physical Exam Triage Information Reviewed: Yes Appearance: Well-Appearing, No Pain Distress, Well-Nourished Vital Signs Reviewed: Yes Musculoskeletal: Positive: Strength Intact, ROM Intact, No Edema - Good peripheral pulses neuro sensation capillary refill, good finger strength with flexion extension against resistance, Neurological: Positive: Alert, Muscle Tone Normal Psychological Exam: Normal Skin: Positive: Other - The patient has an approximate 1.0 cm laceration to the dorsal aspect of his left thumb, bleeding is controlled. Laceration Repair - Laceration Repair 1 Description: Linear Laceration Size After Repair: Length (cm) - 1.0 cm laceration. Modified For Repair: No Type Injection: Local Anesthesia Used: 1.0% Lido Cleansing Completed Via Routine Prep: Yes Irrigation With Pressure Irrigation Device: Yes Closure Material: Sutures - Sutures placed numbered 3 with 40 prolene Closure Method: Single Layer Suture Of: SQ Suture Type: Prolene Laceration Course/Dx - Course/Dx Course Of Treatment: The laceration was repaired without difficulty and the patient tolerated procedure well. A dry sterile bulky dressing was applied and he is to change it daily. He is to watch for signs of infection. He is to follow-up with his primary care provider in 10 days for suture removal or sooner if any concerns such as infection which were reviewed with the patient. Last tetanus is up-to- date. - Diagnosis Provider Diagnosis: Laceration of left thumb Discharge - Sign-Out/Discharge Documenting (check all that apply): Patient Departure All imaging exams completed and their final reports reviewed: No Studies - Discharge Plan Condition: Fair Disposition: HOME Patient Education Materials: Care For Your Stitches (DC) Referrals: Doris Nieves MD [Primary Care Provider] - Additional Instructions: Change dressing daily. Watch for signs of infection such as hot, red, tender, red streaks up your finger or hand or pus drainage. Follow-up with your primary care provider in 10 days for suture removal or sooner if you have any questions. - Billing Disposition and Condition Condition: FAIR Disposition: Home - Attestation Statements Provider Attestation: Per institutional requirements, I have reviewed the chart, however, I was not consulted specifically or made aware of this patient by the midlevel provider. I did not personally evaluate, interact with , or disposition this patient.
== END 2019-01-14 20:05 | disposition home or self-care (01) ==
LOC: UCEAST 18:45
DX: S61.012A Laceration without foreign body of left thumb without damage to nail, initial encounter (principal); W26.0XXA Contact with knife, initial encounter; Y93.89 Activity, other specified; Y92.9 Unspecified place or not applicable; I48.91 Unspecified atrial fibrillation; Z79.01 Long term (current) use of anticoagulants; Z87.891 Personal history of nicotine dependence
CPT/HCPCS: 12001; 99211; G0463

== ENCOUNTER 2019-06-06 12:06 | Emergency (ER) | payer BC ==
--- OUTSIDE RECORDS SUMMARY | 2019-06-06 12:11 | XMS REPORT | Continuity of Care Document ---
:1985 External Reference #:[id number] Author Name Lonnie Williamson MD (transmitted by agent of provider Tequila Landis) Address [address] [place] [address] Care Team Providers Name Role Phone Doris Nieves MD - Family Medicine Care Team Information [employer] Problems Active Problems Provider Date Epigastric pain Lonnie Williamson MD Onset: 03/04/2018 Obesity Lonnie Williamson MD Onset: 04/27/2018 Helicobacter pylori Lonnie Williamson MD Onset: 04/27/2018 Social History Type Date Description Comments Sex Unknown Tobacco Use Start: Unknown End: Former Cigarette Smoker Social smoker 5 cigs Unknown a day for 6 years Smoking Status Reviewed: 09/20/18 Former Cigarette Smoker Social smoker 5 cigs a day for 6 years ETOH Use Denies alcohol use Tobacco Use Start: Unknown End: Patient is a former smoker Recreational Drug Use Denies Drug Use Allergies, Adverse Reactions, Alerts Active Allergies Reaction Severity Comments Date Ciprofloxacin intolerance, body flush & hot 01/27/2013 Inactive Allergies NKDA 01/11/2013 Medications Active Medications SIG Qnty Indications Ordering Provider Date Pantoprazole Sodium Take One Tablet 90tabs Lonnie Williamson 03/04/2018 40mg By Mouth Every MD Tablets DR Day Immunizations Description No Information Available Vital Signs Date Vital Result Comment 01/21/2019 1:51pm BP Systolic Sitting Right Arm 130 mmHg BP Diastolic Sitting Right Arm 74 mmHg Heart Rate 52 /min Respiratory Rate 18 /min Height 69 inches 5'9" Weight 233.00 lb BMI (Body Mass Index) 34.4 kg/m2 BSA (Body Surface Area) 2.20 m2 [place] body weight in kilograms 73 kg O2 % BldC Oximetry 97 % 09/20/2018 3:25pm BP Systolic Sitting Right Arm 130 mmHg BP Diastolic Sitting Right Arm 78 mmHg Heart Rate 60 /min Respiratory Rate 16 /min Height 69 inches 5'9" Weight 276.00 lb BMI (Body Mass Index) 40.8 kg/m2 BSA (Body Surface Area) 2.37 m2 [place] body weight in kilograms 73 kg O2 % BldC Oximetry 97 % ra Results Description No Information Available Procedures Date Code Description Status 01/21/2019 88334 EKG-Tracing And Report Completed 01/05/2013 93322266 Colonoscopy Completed Medical Devices Description No Information Available Encounters Type Date Location Provider Dx Diagnosis Office Visit 01/21/2019 Cardiology Office Dominick Fernandez I48.0 Paroxysmal atrial 1:40p Felicita Fish, [facility] fibrillation G47.33 Obstructive sleep apnea (adult) (pediatric) Assessments Date Code Description Provider 01/21/2019 I48.0 Paroxysmal atrial fibrillation Dominick Fernandez M.D., [facility] 01/21/2019 G47.33 Obstructive sleep apnea (adult) Dominick Fernandez M.D. , [facility] (pediatric) 01/21/2019 I48.0 Paroxysmal atrial fibrillation Adriana Deleon PA 01/21/2019 G47.33 Obstructive sleep apnea (adult) Adriana Deleon PA (pediatric) Plan of Treatment Future Appointment(s):01/27/2020 3:20 pm - Adriana Deleon PA at [facility]/21/2019 - Adriana Deleon, PAI48.0 Paroxysmal atrial fibrillationComments:No recurrence off ADD since September 2018. There is no need for OAC because of score of 0G47.33 Obstructive sleep apnea (adult) (pediatric) Comments:Resolved after losing 80 lbsAllFollow up:Follow up visit in one year. Functional Status Functional Condition Comment Date Status Independent with all ADL's Active Mental Status Description No Information Available Referrals Description No Information Available
[2019-06-06 12:15] VITALS: BP 108/66
[2019-06-06 12:31] LABS: Influenza B Molecular POSITIVE (Negative)
--- NOTE | 2019-06-06 12:32 | UC ---
FLU HPI - HPI Summary HPI Summary: 34 yo with 6 day history of fever, vomiting several times in the first several days, and now with episodes of diarrhea and persistent myalgias. He has occasionally felt out of breath, but has not had much cough. + headache. Voiding well and he has been good about keeping a high intake of fluids. Believes that he did not get a flu shot this year. - History of Current Complaint Chief Complaint: UCGeneralIllness Stated Complaint: FLU LIKE SYMPTOMS Time Seen by Provider: 06/06/19 12:21 Hx Obtained From: Patient Onset/Duration: Sudden Onset Pain Intensity: 6 Associated Signs & Symptoms: Positive: T Max - 103, Myalgia, Headache, Vomiting , Diarrhea - Risk Factors Influenza Risk Factors: Negative - Allergy/Home Medications Allergies/Adverse Reactions: Allergies Allergy/AdvReac Type Severity Reaction Status Date / Time ciprofloxacin Allergy See Comment Verified 06/06/19 12:15 PMH/Surg Hx/FS Hx/Imm Hx Previously Healthy: Yes Other History Of: Anticoagulant Therapy - Surgical History Surgical History: Yes Surgery Procedure, Year, and Place: L 2002 - Family History Known Family History: Positive: Hypertension - Social History Occupation: Employed Full-time Lives: With Family Alcohol Use: None Substance Use Type: None Smoking Status (MU): Former Smoker Type: Cigarettes Length of Time of Smoking/Using Tobacco: On and Off 4 Years Have You Smoked in the Last Year: Yes When Did the Patient Quit Smoking/Using Tobacco: 2012 - Immunization History Most Recent Influenza Vaccination: Current for 2013/2014 Most Recent Tetanus Shot: 2018 Review of Systems All Other Systems Reviewed And Are Negative: Yes Constitutional: Positive: Fever, Fatigue Skin: Positive: Negative Eyes: Positive: Negative ENT: Positive: Nasal Discharge Respiratory: Positive: Shortness Of Breath Cardiovascular: Negative: Palpitations, Chest Pain Gastrointestinal: Positive: Vomiting, Diarrhea Genitourinary: Positive: Negative Motor: Positive: Negative Neurovascular: Positive: Negative Musculoskeletal: Positive: Arthralgia, Myalgia Neurological: Positive: Headache Psychological: Positive: Negative Is Patient Immunocompromised?: No Physical Exam Triage Information Reviewed: Yes Appearance: Ill-Appearing - looks mildly unwell, Pain Distress - mild Vital Signs: Initial Vital Signs Temp 99 F 06/06/19 12:12 Pulse 54 06/06/19 12:12 Resp 16 06/06/19 12:12 BP 108/66 06/06/19 12:12 Pulse Ox 100 06/06/19 12:12 Vital Signs Reviewed: Yes Eyes: Positive: Conjunctiva Clear ENT: Positive: Pharynx normal, TMs normal Neck: Positive: Supple, Nontender, No Lymphadenopathy Respiratory: Positive: Lungs clear, Normal breath sounds, No respiratory distress Cardiovascular: Positive: RRR, No Murmur Abdomen Description: Positive: Nontender, No Organomegaly, Soft Musculoskeletal Exam: Normal Neurological Exam: Normal Psychological Exam: Normal Skin Exam: Normal Flu Course/Dx - Course Course Of Treatment: Continue symptomatic treatment of flu, continue high intake of fluids. - Differential Dx/Diagnosis Provider Diagnosis: Influenza B Discharge ED - Sign-Out/Discharge Documenting (check all that apply): Patient Departure All imaging exams completed and their final reports reviewed: No Studies - Discharge Plan Condition: Stable Disposition: HOME Patient Education Materials: Influenza (ED) Forms: *Work Release Referrals: Doris Nieves MD [Primary Care Provider] - - Billing Disposition and Condition Condition: STABLE Disposition: Home
== END 2019-06-06 12:52 | disposition home or self-care (01) ==
LOC: UCEAST 12:06
DX: J11.1 Influenza due to unidentified influenza virus with other respiratory manifestations (principal); R19.7 Diarrhea, unspecified; Z88.1 Allergy status to other antibiotic agents; Z87.891 Personal history of nicotine dependence
CPT/HCPCS: 99211; G0463

== ENCOUNTER 2019-06-16 16:21 | Emergency (ER) | payer BC ==
[2019-06-16 16:53] VITALS: BP 106/59
--- NOTE | 2019-06-16 17:09 | ED ---
GI/ HPI - HPI Summary HPI Summary: 34 yr old male with the complaint of diarrhea, myalgias. Onset yesterday. The patient states he had flu B on 06/06 of this year. He got better. he has not been on antibiotics. He says that yesterday he had a stomach ache, and then followed by watery diarrhea. He denies NV. Denies runny nose, sore throat, coughing. - History of Current Complaint Chief Complaint: UCGeneralIllness Time Seen by Provider: 06/16/19 16:55 Stated Complaint: FLU LIKE SYMPTOMS Pain Intensity: 6 - Allergy/Home Medications Allergies/Adverse Reactions: Allergies Allergy/AdvReac Type Severity Reaction Status Date / Time ciprofloxacin Allergy See Comment Verified 06/16/19 16:53 PMH/Surg Hx/FS Hx/Imm Hx Endocrine/Hematology History: Reports: Hx Anticoagulant Therapy Cardiovascular History: Denies: Hx Cardiac Arrest History: Denies: Hx Dialysis Neurological History: Denies: Hx CVA - Surgical History Surgery Procedure, Year, and Place: [facility] 2002 Infectious Disease History: No Infectious Disease History: Denies: Traveled Outside the [place] in Last 30 Days - Family History Known Family History: Positive: Hypertension - Social History Alcohol Use: None Substance Use Type: Reports: None Smoking Status (MU): Former Smoker Type: Cigarettes Length of Time of Smoking/Using Tobacco: On and Off 4 Years Have You Smoked in the Last Year: Yes Review of Systems Positive: Fever, Chills, Fatigue Positive: Diarrhea All Other Systems Reviewed And Are Negative: Yes Physical Exam Triage Information Reviewed: Yes Vital Signs On Initial Exam: Initial Vitals Temp Pulse Resp BP Pulse Ox 99.0 F 64 16 106/59 100 06/16/19 16:49 06/16/19 16:49 06/16/19 16:49 06/16/19 16:49 06/16/19 16:49 Vital Signs Reviewed: Yes Appearance: Positive: Well-Appearing, No Pain Distress Skin: Positive: Warm, Skin Color Reflects Adequate Perfusion Head/Face: Positive: Normal Head/Face Inspection Eyes: Positive: EOMI ENT: Positive: Normal ENT inspection Neck: Positive: Nontender Respiratory/Lung Sounds: Positive: Clear to Auscultation, Breath Sounds Present Cardiovascular: Positive: RRR. Negative: Murmur Abdomen Description: Positive: Nontender Musculoskeletal: Positive: Strength/ROM Intact Neurological: Positive: Sensory/Motor Intact, Alert, Oriented to Person Place, Time, CN Intact II-III, Normal Gait, Speech Normal Psychiatric: Positive: Normal Diagnostics - Vital Signs Vital Signs Temp Pulse Resp BP Pulse Ox 06/16/19 16:49 99.0 F 64 16 106/59 100 - Laboratory Lab Statement: Any lab studies that have been ordered have been reviewed, and results considered in the medical decision making process. GIGU Course/Dx - Course Course Of Treatment: 34 yr old with diarrhea. DC home. Clear Liquid. FU with PMD. Note for work given. Any worsening symptoms the patient can go to the ER. - Diagnoses Provider Diagnoses: Diarrhea Discharge ED - Sign-Out/Discharge Documenting (check all that apply): Patient Departure All imaging exams completed and their final reports reviewed: No Studies - Discharge Plan Condition: Good Disposition: HOME Patient Education Materials: Acute Diarrhea (ED) Forms: *Work Release Referrals: Doris Nieves MD [Primary Care Provider] - 2 Days - Billing Disposition and Condition Condition: GOOD Disposition: Home
[2019-06-16 17:14] LABS: Influenza A Molecular NEGATIVE (Negative); Influenza B Molecular NEGATIVE (Negative)
== END 2019-06-16 17:30 | disposition home or self-care (01) ==
LOC: UCCORT 16:21
DX: R19.7 Diarrhea, unspecified (principal); R50.9 Fever, unspecified; R53.83 Other fatigue; M79.10 Myalgia, unspecified site; Z79.01 Long term (current) use of anticoagulants; Z87.891 Personal history of nicotine dependence; Z88.1 Allergy status to other antibiotic agents
CPT/HCPCS: 99211; G0463